=== PATIENT | male | born 2000 | race Caucasian/White ===

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

== ENCOUNTER 2022-05-16 19:18 | Inpatient (IN) ==
[2022-05-16 20:10] LABS: Appearance Urine Clear (Clear); Bilirubin Urine Negative (Negative); Blood Urine Negative (Negative); Color Urine Yellow; Glucose Urine UA Negative (Negative); Ketones Urine Trace (Negative); Leukocyte Esterase Urine Negative (Negative); Nitrite Urine Negative (Negative); Protein Urine Negative (Negative); Specific Gravity Urine 1.027 (1.000-1.030); Urobilinogen Urine Positive (Negative)
[2022-05-16] MEDS ORDERED: LORazepam 1 MG TAB PO STA (20:20)
--- NOTE | 2022-05-16 20:28 | Emergency Department Note ---
Impression & Plan OCD (obsessive compulsive disorder), Anxiety ED Provider Note NAME: ALICE TYSON AGE: 21 SEX: M : 2000 ARRIVES VIA: Walk-In INFORMANT: Patient, ED PROVIDER(S): Nader Plata DO CHIEF COMPLAINT: Mental health HPI: The patient is a 21-year-old male who presented to the emergency department for an evaluation of mental health issues. The patient states that he has been having ongoing worsening symptoms for the last few weeks. He has a history of severe OCD. He states that recently he has been not able to do his daily activities or meet his goals. He denies having any suicidal homicidal ideation. He presented with his father who was very concerned about his presentation this evening. The patient has had no recent trauma. He denies having any fever or cough. The patient was evaluated by his therapist. They have been trying to manage his medications but he does not feel that they are helping his symptoms. The patient call crisis this evening. He presented to the emergency department for possible inpatient treatment ROS: See above HPI for pertinent positives & negatives. A total of 10 systems reviewed and were otherwise negative. PAST MEDICAL HISTORY: See Below PAST SURGICAL HISTORY: See Below FAMILY HISTORY: See Below SOCIAL HISTORY: See Below HOME MEDICATIONS: See Below ALLERGIES: See Below VITALS: See Below PHYSICAL EXAMINATION: GENERAL: The patient is awake and alert. The patient is resting but he appears somewhat guarded. EYES: The conjunctivae are clear. The pupils are round and reactive. EARS, NOSE, MOUTH AND THROAT: The nose is without any evidence of any deformity. NECK: The neck is nontender and supple. RESPIRATORY: Normal respiratory effort is noted there is no evidence of wheezing rhonchi or rales CARDIOVASCULAR: Regular rate and rhythm noted there no murmurs rubs or gallops normal S1 normal S2. GASTROINTESTINAL: The abdomen is soft. Abdomen is nontender. MUSCULOSKELETAL/EXTREMITIES: There is no evidence of gross deformity full range of motion is noted in the hips and shoulders. SKIN: There is no obvious evidence of any rash. There are no petechiae, pallor or cyanosis noted. NEUROLOGIC: Patient is awake alert and oriented x3 strength is symmetric patellar reflexes are 2+ bilaterally. Gait was steady. PSYCH: The patient makes good eye contact mostly evaluation. He is currently denying any suicidal homicidal ideation. MEDICAL DECISION MAKING: The patient is a 21-year-old male who presented to the emergency department for an evaluation of mental health issues. The patient was medically cleared in the emergency department. The patient was treated with medication for anxiety. Once the patient was medically cleared he was evaluated by the mental health case fitter. The patient was requesting voluntary inpatient treatment. He was evaluated by 3 S. and was felt to be a good candidate for inpatient management. 201 was signed by myself. Triage Nursing notes reviewed. Prior medical records reviewed Vital Signs: reviewed and remarkable for no significant abnormalities Differential diagnosis: Mood disorder, infection, hypoglycemia, electrolyte abnormalities, cardiac sources, intracerebral event, toxicologic, trauma, neurologic, as well as other pathologies. ER treatment provided: See below Diagnostics interpreted by me: ECG: none Laboratory studies: As stated above and show below. Imaging studies: See below Consultation(s): none Past Med/Surg History Medical History [place] use Obesity Surgical History No pertinent past surgical history Family History Mother Diabetes Denies family history of Ovarian cancer Prostate cancer Myocardial infarction Breast cancer Colorectal cancer Hypertension Social History Smoking Status: Never smoker Second Hand Exposure: No; Hx Alcohol Use: No Hx Substance Use: No Preferred Language: Romanian Communication Ability: Effective Hearing Ability: Normal Document Imaging Manager Required: No marital status: Single Current Living Situation: Family Current Living Situation Comment: mother and father current occupational status: unemployed How many Children do You have: 0 Feels Safe at Home: Yes Childhood Exposure to Second-Hand Smoke: No caffeine: No Dental Care, Regularly: Yes Physical Activity Frequency: Daily Physical Activity Frequency Comment: working out Seatbelt Use: always Sunscreen Use: Yes Allergies Allergies Allergy/AdvReac Type Severity Reaction Status Date / Time No Known Allergies AdvReac Unknown Verified 05/16/22 21:24 Home Meds Home Medications Medication Instructions Recorded Confirmed lurasidone 20 mg tablet (Latuda) 40 mg PO HS 04/29/22 05/16/22 buspirone 10 mg tablet 0 mg PO BID 05/16/22 05/16/22 lamotrigine 100 mg tablet 0 mg PO BID 05/16/22 05/16/22 (Lamictal) Previous Rx's Medication Instructions Recorded duloxetine 30 mg capsule,delayed 30 mg PO BID #60 caps 05/16/22 release (Cymbalta) Results & Data (ED) Vital Signs Vital Signs - 24 hr 05/16/22 19:39 Temperature 36.7 C Temperature Source Temporal Artery Scan Pulse Rate 65 Respiratory Rate 16 Respiratory Effort / Characteristics Non-Labored Respiratory Depth Normal Respiratory Pattern Regular Blood Pressure 122/72 Blood Pressure Mean 88 Blood Pressure Position Sitting Pulse Oximetry 95 Oxygen Delivery Method Room Air Sepsis Recent Fever Within 48 Hours No Sepsis New/Unexplained Change in Mental Status N/A Sepsis Action Taken by Nursing No Action Required Home Medications Current Medication List: was personally reviewed by me Laboratory Data Attestation: I reviewed the patient's lab results. Result diagrams: 05/16/22 20:02 05/16/22 20:02 Lab Results 05/16/22 05/16/22 05/16/22 Range/Units 19:45 19:45 20:02 WBC 7.23 (4.8-10.8) K/ul RBC 5.55 (4.63-6.08) M/uL Hgb 16.0 (14.0-18.0) g/dl Hct 46.8 (40.1-51.0) % MCV 84.3 (80.0-100.0) fL MCH 28.8 (25.0-34.0) pg MCHC 34.2 (32.0-36.0) g/dL RDW Std Deviation 40.6 (36.4-46.3) fL RDW Coeff of Juan Alberto 13.2 (11.5-14.5) % Plt Count 299 (130-400) K/uL MPV 9.8 (9.4-12.4) fL Immature Gran % (Auto) 0.3 % Neut % (Auto) 60.6 % Lymph % (Auto) 34.4 % [place] % (Auto) 4.4 % Eos % (Auto) 0.0 % Baso % (Auto) 0.3 % Neut # (Auto) 4.38 (1.4-6.5) K/uL Lymph # (Auto) 2.49 (1.2-3.4) K/uL [place] # (Auto) 0.32 (0.24-0.82) K/uL Eos # (Auto) 0.00 (0-0.50) K/uL Baso # (Auto) 0.02 (0-0.2) K/uL Immature Gran # (Auto) 0.02 (0.00-0.02) K/uL Sodium (136-145) mmol/L Potassium (3.5-5.1) mmol/L Chloride (98-107) mmol/L Carbon Dioxide (21-32) mmol/L Anion Gap (3-11) BUN (6-23) mg/dl Creatinine (0.6-1.4) mg/dl Est Cr Clr Drug Dosing ml/min Est GFR ( Amer) ml/min Est GFR (Non-Af Amer) ml/min BUN/Creatinine Ratio (10-20) Glucose (70-99(Fasting)) mg/dl Calcium (8.5-10.1) mg/dl Total Bilirubin (0.2-1.0) mg/dl AST (13-39) U/L ALT (7-52) U/L Alkaline Phosphatase (34-104) U/L Total Protein (6.0-8.3) gm/dl Albumin (3.4-5.0) gm/dl Globulin (2.5-4.0) gm/dl Albumin/Globulin Ratio (0.9-2) TSH (0.300-4.500) uIu/ml Urine Color Yellow Urine Appearance Clear (Clear) Urine pH 7.0 (4.5-7.5) Ur Specific [place] 1.027 (1.000-1.030) Urine Protein Negative (Negative) Urine Glucose (UA) Negative (Negative) Urine Ketones Trace H (Negative) Urine Blood Negative (Negative) Urine Nitrite Negative (Negative) Urine Bilirubin Negative (Negative) Urine Urobilinogen Positive H (Negative) Ur Leukocyte Esterase Negative (Negative) Salicylates (3.0-30) mg/dl Urine Opiates Screen Neg (Neg) Ur Methadone, Qual Neg (Neg) Acetaminophen (10-30) ug/ml Urine Barbiturates Neg (Neg) Ur Phencyclidine (PCP) Neg (Neg) U Amphetamin/Meth Scrn Neg (Neg) MDMA (Ecstasy) Screen Neg (Neg) U Benzodiazepines Scrn Neg (Neg) Ur Cocaine Metabolite Neg (Neg) U Marijuana (THC) Screen Neg (Neg) Ethyl Alcohol mg/dL (<10.0) mg/dl SARS-CoV-2, RNA, NAAT (NEGATIVE) 05/16/22 05/16/22 05/16/22 Range/Units 20:02 20:02 20:02 WBC (4.8-10.8) K/ul RBC (4.63-6.08) M/uL Hgb (14.0-18.0) g/dl Hct (40.1-51.0) % MCV (80.0-100.0) fL MCH (25.0-34.0) pg MCHC (32.0-36.0) g/dL RDW Std Deviation (36.4-46.3) fL RDW Coeff of Juan Alberto (11.5-14.5) % Plt Count (130-400) K/uL MPV (9.4-12.4) fL Immature Gran % (Auto) % Neut % (Auto) % Lymph % (Auto) % [place] % (Auto) % Eos % (Auto) % Baso % (Auto) % Neut # (Auto) (1.4-6.5) K/uL Lymph # (Auto) (1.2-3.4) K/uL [place] # (Auto) (0.24-0.82) K/uL Eos # (Auto) (0-0.50) K/uL Baso # (Auto) (0-0.2) K/uL Immature Gran # (Auto) (0.00-0.02) K/uL Sodium 139 (136-145) mmol/L Potassium 4.2 (3.5-5.1) mmol/L Chloride 104 (98-107) mmol/L Carbon Dioxide 27 (21-32) mmol/L Anion Gap 8 (3-11) BUN 21 (6-23) mg/dl Creatinine 1.12 (0.6-1.4) mg/dl Est Cr Clr Drug Dosing 118.9 ml/min Est GFR ( Amer) 109.0 ml/min Est GFR (Non-Af Amer) 94.1 ml/min BUN/Creatinine Ratio 18.8 (10-20) Glucose 92 (70-99(Fasting)) mg/dl Calcium 9.4 (8.5-10.1) mg/dl Total Bilirubin 0.6 (0.2-1.0) mg/dl AST 138 H (13-39) U/L ALT 65 H (7-52) U/L Alkaline Phosphatase 95 (34-104) U/L Total Protein 7.4 (6.0-8.3) gm/dl Albumin 4.9 (3.4-5.0) gm/dl Globulin 2.5 (2.5-4.0) gm/dl Albumin/Globulin Ratio 2.0 (0.9-2) TSH 0.694 (0.300-4.500) uIu/ml Urine Color Urine Appearance (Clear) Urine pH (4.5-7.5) Ur Specific [place] (1.000-1.030) Urine Protein (Negative) Urine Glucose (UA) (Negative) Urine Ketones (Negative) Urine Blood (Negative) Urine Nitrite (Negative) Urine Bilirubin (Negative) Urine Urobilinogen (Negative) Ur Leukocyte Esterase (Negative) Salicylates < 3.0 L (3.0-30) mg/dl Urine Opiates Screen (Neg) Ur Methadone, Qual (Neg) Acetaminophen < 3 L (10-30) ug/ml Urine Barbiturates (Neg) Ur Phencyclidine (PCP) (Neg) U Amphetamin/Meth Scrn (Neg) MDMA (Ecstasy) Screen (Neg) U Benzodiazepines Scrn (Neg) Ur Cocaine Metabolite (Neg) U Marijuana (THC) Screen (Neg) Ethyl Alcohol mg/dL (<10.0) mg/dl SARS-CoV-2, RNA, NAAT (NEGATIVE) 05/16/22 05/16/22 Range/Units 20:02 20:40 WBC (4.8-10.8) K/ul RBC (4.63-6.08) M/uL Hgb (14.0-18.0) g/dl Hct (40.1-51.0) % MCV (80.0-100.0) fL MCH (25.0-34.0) pg MCHC (32.0-36.0) g/dL RDW Std Deviation (36.4-46.3) fL RDW Coeff of Juan Alberto (11.5-14.5) % Plt Count (130-400) K/uL MPV (9.4-12.4) fL Immature Gran % (Auto) % Neut % (Auto) % Lymph % (Auto) % [place] % (Auto) % Eos % (Auto) % Baso % (Auto) % Neut # (Auto) (1.4-6.5) K/uL Lymph # (Auto) (1.2-3.4) K/uL [place] # (Auto) (0.24-0.82) K/uL Eos # (Auto) (0-0.50) K/uL Baso # (Auto) (0-0.2) K/uL Immature Gran # (Auto) (0.00-0.02) K/uL Sodium (136-145) mmol/L Potassium (3.5-5.1) mmol/L Chloride (98-107) mmol/L Carbon Dioxide (21-32) mmol/L Anion Gap (3-11) BUN (6-23) mg/dl Creatinine (0.6-1.4) mg/dl Est Cr Clr Drug Dosing ml/min Est GFR ( Amer) ml/min Est GFR (Non-Af Amer) ml/min BUN/Creatinine Ratio (10-20) Glucose (70-99(Fasting)) mg/dl Calcium (8.5-10.1) mg/dl Total Bilirubin (0.2-1.0) mg/dl AST (13-39) U/L ALT (7-52) U/L Alkaline Phosphatase (34-104) U/L Total Protein (6.0-8.3) gm/dl Albumin (3.4-5.0) gm/dl Globulin (2.5-4.0) gm/dl Albumin/Globulin Ratio (0.9-2) TSH (0.300-4.500) uIu/ml Urine Color Urine Appearance (Clear) Urine pH (4.5-7.5) Ur Specific [place] (1.000-1.030) Urine Protein (Negative) Urine Glucose (UA) (Negative) Urine Ketones (Negative) Urine Blood (Negative) Urine Nitrite (Negative) Urine Bilirubin (Negative) Urine Urobilinogen (Negative) Ur Leukocyte Esterase (Negative) Salicylates (3.0-30) mg/dl Urine Opiates Screen (Neg) Ur Methadone, Qual (Neg) Acetaminophen (10-30) ug/ml Urine Barbiturates (Neg) Ur Phencyclidine (PCP) (Neg) U Amphetamin/Meth Scrn (Neg) MDMA (Ecstasy) Screen (Neg) U Benzodiazepines Scrn (Neg) Ur Cocaine Metabolite (Neg) U Marijuana (THC) Screen (Neg) Ethyl Alcohol mg/dL < 10.0 (<10.0) mg/dl SARS-CoV-2, RNA, NAAT NEGATIVE (NEGATIVE) Administered Medications Buspirone HCl (Buspirone 5 Mg Tab) 20 mg PO HS LEAH Stop: 06/15/22 23:03 Last Admin: 05/16/22 23:34 Dose: 20 mg Documented By: LED Lurasidone HCl (Lurasidone Hcl 40 Mg Tab) 40 mg PO HS LEAH Stop: 06/15/22 23:04 Last Admin: 05/16/22 23:34 Dose: 40 mg Documented By: MANDY Pramipexole Dihydrochloride (Pramipexole Dihydrochlo 0.5 Mg Tab) 1 mg PO HS LEAH Stop: 06/15/22 23:04 Last Admin: 05/16/22 23:34 Dose: 1 mg Documented By: MANDY Discontinued Medications Lorazepam (Lorazepam 1 Mg Tab) 1 mg PO NOW STA Stop: 05/16/22 20:21 Last Admin: 05/16/22 20:40 Dose: 1 mg Documented By: EZEQUIEL Discharge Plan Visit Data Chief Complaint: Mental Health Evaluation Stated Complaint: MENTAL HEALTH EVALUATION ED Provider: Nader Plata Discharge Problem: OCD (obsessive compulsive disorder), Anxiety Patient Disposition: Admitted As Inpatient Discharge Instructions Interventions: ED Discharge Assessment Last Done: 05/16/22 22:42 : OCD (obsessive compulsive disorder) Qualifiers: Obsessive-compulsive disorder type: unspecified Qualified Code(s): F42.9 - Obsessive-compulsive disorder, unspecified
[2022-05-16 20:30] LABS: Basophils # (auto) 0.02 K/uL (0-0.2); Basophils % (auto) 0.3 %; Hematocrit (blood only) 46.8 % (40.1-51.0); Immature Granulocytes # (auto) 0.02 K/uL (0.00-0.02); Immature Granulocytes % (auto) 0.3 %; Lymphocytes # (auto) 2.49 K/uL (1.2-3.4); Lymphocytes % (auto) 34.4 %; Mean Corpuscular Hemoglobin 28.8 pg (25.0-34.0); Mean Corpuscular Hgb Conc 34.2 g/dL (32.0-36.0); Mean Corpuscular Volume 84.3 fL (80.0-100.0); Mean Platelet Volume 9.8 fL (9.4-12.4); Monocytes # (auto) 0.32 K/uL (0.24-0.82); Monocytes % (auto) 4.4 %; Neutrophils # (auto) 4.38 K/uL (1.4-6.5); Neutrophils % (auto) 60.6 %; Platelet Count 299 K/uL (130-400); RDW Coefficient of Variation 13.2 % (11.5-14.5); RDW Standard Deviation 40.6 fL (36.4-46.3); Red Blood Count 5.55 M/uL (4.63-6.08); White Blood Count 7.23 K/ul (4.8-10.8)
[2022-05-16 20:51] LABS: Amphetamines+Metham, Urine Neg (Neg); Barbiturates, Urine Neg (Neg); Benzodiazepine, Urine Neg (Neg); Cocaine, Urine Neg (Neg); MDMA (Ecstacy), Urine Neg (Neg); Methadone, Urine Neg (Neg); Opiate, Urine Neg (Neg); Phencyclidine, Urine Neg (Neg)
[2022-05-16 20:53] LABS: Acetaminophen < 3 ug/ml (10-30); Salicylate < 3.0 mg/dl (3.0-30)
[2022-05-16 20:55] LABS: Albumin Level 4.9 gm/dl (3.4-5.0); BUN Creatinine Ratio 18.8 (10-20); Bilirubin,Total 0.6 mg/dl (0.2-1.0); Calcium 9.4 mg/dl (8.5-10.1); Creatinine Clr Calc Pharmacy 118.9 ml/min; Est GFR (Non-African American) 94.1 ml/min; Globulin 2.5 gm/dl (2.5-4.0); Potassium 4.2 mmol/L (3.5-5.1); Total Protein 7.4 gm/dl (6.0-8.3)
[2022-05-16] MEDS ORDERED: MAGNESIUM HYDROXIDE SUSP 30 ML UDC PO PRN (22:29)
[2022-05-16] MEDS ORDERED: SODIUM CHLORIDE 0.65% NA SOLN 45 ML (OCEAN) PRN (22:29)
[2022-05-16] MEDS ORDERED: ACETAMINOPHEN 325 MG TAB PO PRN (22:29)
[2022-05-16] MEDS ORDERED: hydrOXYzine HCl 25 MG TAB PO PRN ×2 (22:29)
[2022-05-16] MEDS ORDERED: BISMUTH SUBSALICYLATE LIQD 236 ML PO PRN (22:29)
[2022-05-16] MEDS ORDERED: ALUMINUM/MAGNESIUM SUSP 30 ML UDC PO PRN (22:29)
[2022-05-16] MEDS ORDERED: busPIRone 5 MG TAB PO SCH (23:04)
[2022-05-16] MEDS ORDERED: LURASIDONE HCL 40 MG TAB PO SCH (23:05)
[2022-05-16] MEDS ORDERED: PRAMIPEXOLE DIHYDROCHLO 0.5 MG TAB PO SCH (23:05)
[2022-05-17] MEDS ORDERED: ALUMINUM/MAGNESIUM SUSP 30 ML UDC PO PRN (02:05)
[2022-05-17] MEDS ORDERED: SODIUM CHLORIDE 0.65% NA SOLN 45 ML (OCEAN) PRN (02:05)
[2022-05-17] MEDS ORDERED: hydrOXYzine HCl 25 MG TAB PO PRN ×2 (02:05)
[2022-05-17] MEDS ORDERED: BISMUTH SUBSALICYLATE LIQD 236 ML PO PRN (02:05)
[2022-05-17] MEDS ORDERED: ACETAMINOPHEN 325 MG TAB PO PRN (02:05)
[2022-05-17] MEDS ORDERED: MAGNESIUM HYDROXIDE SUSP 30 ML UDC PO PRN (02:05)
[2022-05-17] MEDS: DULoxetine HCL 30 MG CAP PO SCH ×2 (10:34→22:01)
[2022-05-17] MEDS: busPIRone 5 MG TAB PO SCH ×2 (10:34→22:06)
--- NOTE | 2022-05-17 14:30 | History & Physical ---
Date of Service May 17, 2022 Impression / Recommendations Impression The patient is a 21 year old with a history of OCD, childhood trauma, MDD, PTSD and possible BPAD who was admitted for failure of self-care due to severe depression and OCD. Diagnostically unclear at this point, seems that OCD and depression have been contributing to significant neurovegetative symptoms resulting in inability to function but unclear if recent elevated mood episode contributing to irritability. He has also lost a significant amount of weight in the last year but denies any eating disorder symptoms, if anything orthorexia so continue to evaluate this and monitor intake while he is here. The patient is deemed unstable and requires psychiatric hospitalization for diagnostic clarification, safety and stabilization, medication management and development of further coping skills as he felt unable to function in the outpatient setting. Discussed medication treatment options. Discussed risks, benefits and alternatives. Patient would like to continue with most of his current medications for now but agreed to stop mirapex given potential for long-term worsening of restless legs and to try gabapentin instead as this can also help with anxiety, agreed to switch latuda to dinner time to allow for better absorption as he does not take it with a snack at bedtime. Reviewed side effects including but not limited to: GI, SY, sexual side effects, HTN, diaphoresis with Cymbalta, movement (TD, NMS), cardiac (QTc prolongation), and metabolic (stroke, insulin resistance) and necessity for fasting lipid and glucose labwork and AIMS done with score of 0 for latuda, sedation and dizziness with gabapentin, dizziness/SY with buspar, and potential for Johnson-Zelalem with lamictal and need for adherence which he confirms he has been taking this consistently without any missed doses. (1) Unspecified mood [affective] disorder: (2) OCD (obsessive compulsive disorder): Obsessive-compulsive disorder type: unspecified Qualified Code(s): F42.9 - Obsessive-compulsive disorder, unspecified (3) Fibromyalgia: (4) Anxiety: Plan 05/17/22: The patient was admitted to the [facility] on q15 min checks (behavioral with suicide precautions) for safety. The patient will participate in group, recreational, and milieu therapies and will be offered additional individual and family sessions as clinically appropriate. -Continue with Buspar, Lamictal, Cymbalta -Stop Mirapex and start gabapentin 300mg qhs -Change latuda to with dinner Inventory Assets Strengths: resilient, good self-advocate, supportive family, outpatient services Needs: safety and stabilization, medication adjustment, additional coping skills, increased outpatient services Suicide Risk Level Suicide Risk Level: Moderate (q15 min suicide checks) Suicide Risk Level Comments: Moderate due to severe anxiety and depression but feels safe in the hospital, able to safety contract and agrees to let nursing/staff know should he develop active SI, plan, intent or feel unable to remain safe. Risk Factors Assessment Male: Yes : Yes Do You Have Access To A Gun?: No (dad has guns which are locked and he doesn't have access) Health Problems: Yes Mental Health Diagnoses: Yes Substance Use Disorders: No Previous Attempt: No Family History of Suicide: Yes Previous Psychiatric Hospitalization: Yes Hopelessness: Yes Protective Factors Assessment Employed: No (seeking emoployment) Stable Relationships: Yes Supportive Family: Yes Good Rapport with Provider: Yes Psychiatric History Identifying Data ALICE TYSON is a 21-year-old M who currently lives in [facility] with his parents, has a history of BPAD, OCD, PTSD and MDD, and was admitted on 05/16/22 22:30 on a 201 voluntary commitment for severe depression with inability to function. Chief Complaint "I feel like I'm about to have a mental breakdown". History of Present Illness DJ presents for psychiatric admission for worsening depression in the context of leaving his job but also notes he cannot identify any particular significant stressors so he suspects it's an issue with his medications no longer working. In the last month he found that "things have really gone downhill". He notes that following his boss at his prior job "snapping at me, that's when things really started to go downhill and getting really bad again". He states he's been "really angry and irritable because of my OCD". He notes he is very goal- oriented and was accomplishing a lot including significant weight loss, working out regularly, pursuing dream of being a musician "and then this just kind of happened". He describes symptoms of severe anxiety, "almost on the verge of a mental breakdown" as well as "overthinking everything and thinking no stop to the point that I can't function or do anything". Notes he cannot do any of his hobbies and "talks in circles" which strains his relationship with his parents and now he notices increased irritability and depression with helplessness and hopelessness. He describes an increase in verbal aggression, states he's been slamming stuff and trying to break stuff due to irritability which he notes he not usual for him. He endorses depressive symptoms including anhedonia, tearfulness, hopelessness, helplessness, decreased energy, decreased motivation, decreased concentration, increased sleep last few days ~>10 hours per night, stable appetite. He's also had periods of passive SI. He endorses anxiety symptoms including excessive worry, restlessness, fatigue, irritability, decreased concentration. He is currently prescribed psychiatric medications of: Buspar, Cymbalta (dose increased yesterday to further target OCD symptoms, also helps with his fibromyalgia), Lamictal, Latuda and Mirapex for restless legs. Psychiatric ROS notable for history of sdecreased sleep a few months ago with some increased energy and exercising at night-no clear description for past syl but he feels he has experienced syl before and that it was diagnosed in childhood, hx childhood psychosis in context of severe bullying, hx PTSD, no hx of eating disorder, no hx self-harm. Past Psychiatric History Current Psychiatric Diagnosis: MDD, Bipolar, OCD Outpatient Services: [facility], has a therapist at [facility], has a case supervisor through the [facility]. Previous Psych Admissions: January 2022 [facility], and 3 prior admissions during childhood (age [age] at [facility], age [age] at [facility] and then [facility] a few months later). Do You Have Access To A Gun?: No (dad has guns which are locked and he doesn't have access) History of Previous Suicide Attempt: No Past Medication Trials: Celexa, Vici-level was too high. Clomipramine which helped OCD but can't go back on due to being on Cymbalta Past Head Trauma/Neuro History History of Concussion/Seizure: No Allergies Allergy/AdvReac Type Severity Reaction Status Date / Time No Known Allergies AdvReac Unknown Verified 05/16/22 21:24 Home Medications Medication Instructions Recorded Confirmed Type lurasidone 20 mg tablet (Latuda) 40 mg PO HS 04/29/22 05/17/22 History buspirone 10 mg tablet 10 mg PO DAILY 05/16/22 05/17/22 History duloxetine 30 mg capsule,delayed 30 mg PO BID #60 caps 05/16/22 05/16/22 Rx release (Cymbalta) lamotrigine 100 mg tablet 0 mg PO BID 05/16/22 05/16/22 History (Lamictal) buspirone 30 mg tablet 20 mg PO HS 05/17/22 05/17/22 History pramipexole 1 mg tablet (Mirapex) 1 mg PO HS 05/17/22 05/17/22 History Family History Family History of: Depression, Anxiety, Psychosis/ThoughtDisorder (mom-she has BPD), Suicide Attempts, Bipolar (mom, great grandfather on maternal side ) and Suicide Completion (great grandfather) Family Mental Health History Comment: great grandfather completed suicide. mother with attempts with psychosis, Bipolar, BPD and MIRIAN dx. Alcohol History Hx of Alcohol Use Over the Past 12 Months: No AUDIT Total Score: 0 Smoking Use Have You Smoked or Used Tobacco Products in the Last 30 Days: No Smoking Status: Never smoker Substance History Hx of Prescription Med Misuse Over the Past 12 Months: No Hx of Over the Counter Med Misuse Over the Past 12 Months: No Hx of Inhalent Misuse Over the Past 12 Months: No Hx of Organic Substance Use Over the Past 12 Months: No Hx of Illegal Substances/Street Drug Use Over Past 12 Months: No Problems as a Result of Past Substance Use: None Identified Personal History Living Arrangements: Home Childhood: Lives with his mom and step-dad. His step-dad has been in his life since he was young and he's very close with him. No siblings. Grew up in [place]. Lived with his grandparents when he was young at age 3-4. Highest Grade Completed: High School Graduate Employment Status: Unemployed (recently left prior job as hours were cut and no way to advance; has new job offer to start soon ) Marital Status: Single Number Of Children: n/a Beliefs That Will Affect Care: None Current Legal Problems: No Hx Legal Problems: No Hx Traumatic Life Events: Yes (hx emotional trauma due to seeing his mother struggle with mental health) Patient History Medical History (Updated 05/17/22 @ 16:31 by Ana Maria Peterson MD) Fibromyalgia Vici use Obesity Surgical History No pertinent past surgical history Family History Mother Diabetes Denies family history of Ovarian cancer Prostate cancer Myocardial infarction Breast cancer Colorectal cancer Hypertension Social History Smoking Status: Never smoker Second Hand Exposure: No; Hx Alcohol Use: No Hx Substance Use: No Preferred Language: P[place]in[place] Communication Ability: Effective Hearing Ability: Normal Cashier And Salesperson Required: No Beliefs That Will Affect Care: None marital status: Single Current Living Situation: Family Current Living Situation Comment: mother and father current occupational status: unemployed How many Children do You have: 0 Feels Safe at Home: Yes Childhood Exposure to Second-Hand Smoke: No caffeine: No Dental Care, Regularly: Yes Physical Activity Frequency: Daily Physical Activity Frequency Comment: working out Seatbelt Use: always Sunscreen Use: Yes Assistive Devices: None Review of Systems Review of Systems: All systems reviewed & are unremarkable except as noted in HPI & below (recently broke right arm, healing now and no pain but some redness) Physical Exam Psychiatric: Orientation: alert and oriented x 3 Apperance: appropriately dressed and appropriately groomed Eye Contact: good eye contact Motor Behavior: no abnormal motor movements Speech: + abnormal rate/rhythm/volume of speech (slightly rapid) Affect: + depressed affect and + anxious affect Mood: + depressed mood, + anxious mood and + irritable mood Thought Process: + circumstantial thought process Thought Content: + obsessions, reality based without delusions and + hopelessness Suicidal Thoughts: denies suicidal thoughts Homicidal Thoughts: denies homicidal thoughts Hallucinations: no auditory hallucinations and no visual hallucinations Cognition: recent memory grossly intact, remote memory grossly intact, attention grossly intact and language grossly intact Estimated Intelligence: consistent with education level Insight: + limited insight Judgement: + fair judgement Vital Signs (Past 24 Hours): Last Vital Signs Temp 36.9 C 05/17/22 06:00 Pulse 66 05/17/22 06:49 Resp 16 05/17/22 06:00 BP 121/75 05/17/22 06:49 Pulse Ox 97 05/17/22 06:00 O2 Del Method 05/17/22 06:00 Exam Statement: A physical exam was performed in the ED by Dr. Plata for the purposes of medical clearance. I accept that physical as correct and adequate for the purposes of the inpatient physical exam. Results & Data ([facility]) Laboratory Results Laboratory Results - last 24 hr 05/16/22 05/16/22 05/16/22 19:45 19:45 20:02 WBC 7.23 RBC 5.55 Hgb 16.0 Hct 46.8 MCV 84.3 MCH 28.8 MCHC 34.2 RDW Std Deviation 40.6 RDW Coeff of Juan Alberto 13.2 Plt Count 299 MPV 9.8 Immature Gran % (Auto) 0.3 Neut % (Auto) 60.6 Lymph % (Auto) 34.4 [place] % (Auto) 4.4 Eos % (Auto) 0.0 Baso % (Auto) 0.3 Neut # (Auto) 4.38 Lymph # (Auto) 2.49 [place] # (Auto) 0.32 Eos # (Auto) 0.00 Baso # (Auto) 0.02 Immature Gran # (Auto) 0.02 Sodium Potassium Chloride Carbon Dioxide Anion Gap BUN Creatinine Est Cr Clr Drug Dosing Est GFR ( Amer) Est GFR (Non-Af Amer) BUN/Creatinine Ratio Glucose Calcium Total Bilirubin AST ALT Alkaline Phosphatase Total Protein Albumin Globulin Albumin/Globulin Ratio TSH Urine Color Yellow Urine Appearance Clear Urine pH 7.0 Ur Specific [place] 1.027 Urine Protein Negative Urine Glucose (UA) Negative Urine Ketones Trace H Urine Blood Negative Urine Nitrite Negative Urine Bilirubin Negative Urine Urobilinogen Positive H Ur Leukocyte Esterase Negative Salicylates Urine Opiates Screen Neg Ur Methadone, Qual Neg Acetaminophen Urine Barbiturates Neg Ur Phencyclidine (PCP) Neg U Amphetamin/Meth Scrn Neg MDMA (Ecstasy) Screen Neg U Benzodiazepines Scrn Neg Ur Cocaine Metabolite Neg U Marijuana (THC) Screen Neg Ethyl Alcohol mg/dL SARS-CoV-2, RNA, NAAT 05/16/22 05/16/22 05/16/22 20:02 20:02 20:02 WBC RBC Hgb Hct MCV MCH MCHC RDW Std Deviation RDW Coeff of Juan Alberto Plt Count MPV Immature Gran % (Auto) Neut % (Auto) Lymph % (Auto) [place] % (Auto) Eos % (Auto) Baso % (Auto) Neut # (Auto) Lymph # (Auto) [place] # (Auto) Eos # (Auto) Baso # (Auto) Immature Gran # (Auto) Sodium 139 Potassium 4.2 Chloride 104 Carbon Dioxide 27 Anion Gap 8 BUN 21 Creatinine 1.12 Est Cr Clr Drug Dosing 118.9 Est GFR ( Amer) 109.0 Est GFR (Non-Af Amer) 94.1 BUN/Creatinine Ratio 18.8 Glucose 92 Calcium 9.4 Total Bilirubin 0.6 AST 138 H ALT 65 H Alkaline Phosphatase 95 Total Protein 7.4 Albumin 4.9 Globulin 2.5 Albumin/Globulin Ratio 2.0 TSH 0.694 Urine Color Urine Appearance Urine pH Ur Specific [place] Urine Protein Urine Glucose (UA) Urine Ketones Urine Blood Urine Nitrite Urine Bilirubin Urine Urobilinogen Ur Leukocyte Esterase Salicylates < 3.0 L Urine Opiates Screen Ur Methadone, Qual Acetaminophen < 3 L Urine Barbiturates Ur Phencyclidine (PCP) U Amphetamin/Meth Scrn MDMA (Ecstasy) Screen U Benzodiazepines Scrn Ur Cocaine Metabolite U Marijuana (THC) Screen Ethyl Alcohol mg/dL SARS-CoV-2, RNA, NAAT 05/16/22 05/16/22 20:02 20:40 WBC RBC Hgb Hct MCV MCH MCHC RDW Std Deviation RDW Coeff of Juan Alberto Plt Count MPV Immature Gran % (Auto) Neut % (Auto) Lymph % (Auto) [place] % (Auto) Eos % (Auto) Baso % (Auto) Neut # (Auto) Lymph # (Auto) [place] # (Auto) Eos # (Auto) Baso # (Auto) Immature Gran # (Auto) Sodium Potassium Chloride Carbon Dioxide Anion Gap BUN Creatinine Est Cr Clr Drug Dosing Est GFR ( Amer) Est GFR (Non-Af Amer) BUN/Creatinine Ratio Glucose Calcium Total Bilirubin AST ALT Alkaline Phosphatase Total Protein Albumin Globulin Albumin/Globulin Ratio TSH Urine Color Urine Appearance Urine pH Ur Specific [place] Urine Protein Urine Glucose (UA) Urine Ketones Urine Blood Urine Nitrite Urine Bilirubin Urine Urobilinogen Ur Leukocyte Esterase Salicylates Urine Opiates Screen Ur Methadone, Qual Acetaminophen Urine Barbiturates Ur Phencyclidine (PCP) U Amphetamin/Meth Scrn MDMA (Ecstasy) Screen U Benzodiazepines Scrn Ur Cocaine Metabolite U Marijuana (THC) Screen Ethyl Alcohol mg/dL < 10.0 SARS-CoV-2, RNA, NAAT NEGATIVE Current Inpatient Medications Current Inpatient Medications: Current Inpatient Medications Acetaminophen (Acetaminophen 325 Mg Tab) 650 mg PO Q4H PRN PRN Reason: Headache or Minor Fever Stop: 06/15/22 22:28 Al Hydrox/Mg Hydrox/Simethicone (Aluminum/Magnesium Susp 30 Ml Udc) 30 ml PO Q4H PRN PRN Reason: GI Upset Stop: 06/15/22 22:28 Bismuth Subsalicylate (Bismuth Subsalicylate Liqd 236 Ml) 15 ml PO PRN PRN PRN Reason: Loose Stool Stop: 06/15/22 22:28 Buspirone HCl (Buspirone 5 Mg Tab) 20 mg PO HS [facility] Stop: 06/16/22 21:59 Buspirone HCl (Buspirone 5 Mg Tab) 10 mg PO DAILY [facility] Stop: 06/16/22 08:59 Last Admin: 05/17/22 10:34 Dose: 10 mg Duloxetine HCl (Duloxetine Hcl 30 Mg Cap) 30 mg PO BID [facility] Stop: 06/16/22 08:59 Last Admin: 05/17/22 10:34 Dose: 30 mg Hydroxyzine HCl (Hydroxyzine Hcl 25 Mg Tab) 50 mg PO HSZ PRN PRN Reason: Insomnia Stop: 06/15/22 22:28 Hydroxyzine HCl (Hydroxyzine Hcl 25 Mg Tab) 25 mg PO Q4H PRN PRN Reason: Anxiety Stop: 06/15/22 22:28 Lurasidone HCl (Lurasidone Hcl 40 Mg Tab) 40 mg PO HS [facility] Stop: 06/16/22 21:59 Magnesium Hydroxide (Magnesium Hydroxide Susp 30 Ml Udc) 30 ml PO DAILY PRN PRN Reason: Constipation Stop: 06/15/22 22:28 Miscellaneous (Lamictal - Order Awaiting Action) 1 each N/A QS [facility] Stop: 06/16/22 09:29 Pramipexole Dihydrochloride (Pramipexole Dihydrochlo 0.5 Mg Tab) 1 mg PO HS [facility] Stop: 06/16/22 21:59 Sodium Chloride (Sodium Chloride 0.65% Na Soln 45 Ml ([place])) 1 - 2 sprays NA PRN PRN PRN Reason: Nasal Dryness/Congestion Stop: 06/15/22 22:28
[2022-05-17] MEDS: LURASIDONE HCL 40 MG TAB PO SCH (18:03)
[2022-05-17] MEDS ORDERED: PRAMIPEXOLE DIHYDROCHLO 0.5 MG TAB PO SCH (22:00)
[2022-05-17] MEDS ORDERED: LURASIDONE HCL 40 MG TAB PO SCH (22:00)
[2022-05-17] MEDS: lamoTRIgine 100 MG TAB PO SCH (22:02)
[2022-05-17] MEDS: GABAPENTIN 300 MG CAP PO SCH (22:04)
--- NOTE | 2022-05-18 08:24 | Psychiatric Progress Note ---
Date of Service May 18, 2022 Impression / Recommendations Impression The patient is a 21 year old with a history of OCD, childhood trauma, MDD, PTSD and possible BPAD who was admitted for failure of self-care due to severe depression and OCD. Diagnostically unclear at this point, seems that OCD and depression have been contributing to significant neurovegetative symptoms resulting in inability to function but unclear if recent elevated mood episode contributing to irritability. He has also lost a significant amount of weight in the last year but denies any eating disorder symptoms, if anything orthorexia so continue to evaluate this and monitor intake while he is here. The patient is deemed unstable and requires psychiatric hospitalization for diagnostic clarification, safety and stabilization, medication management and development of further coping skills as he felt unable to function in the outpatient setting. 05/18/22: Continues to endorse very significant depression as well as marked irritability and difficulty tolerating discussions about his medication given h opelessness sedation with the time required to see a change related to medication adjustments. Slept well as he reports ongoing severe fatigue. Tolerating his other medications without any side effects. Discussed option of consolidating Cymbalta dose but he prefers to keep it a split dosing. (1) Unspecified mood [affective] disorder: (2) OCD (obsessive compulsive disorder): (3) Fibromyalgia: (4) Anxiety: Plan 05/18/22: Continue with current medications and treatment plan. Discussed option of augmentation with Depakote which he will consider. 05/17/22: The patient was admitted to the [facility] on q15 min checks (behavioral with suicide precautions) for safety. The patient will participate in group, recreational, and milieu therapies and will be offered additional individual and family sessions as clinically appropriate. -Continue with Buspar, Lamictal, Cymbalta -Stop Mirapex and start gabapentin 300mg qhs -Change latuda to with dinner Inventory Assets Strengths: resilient, good self-advocate, supportive family, outpatient services Needs: safety and stabilization, medication adjustment, additional coping skills, increased outpatient services Suicide Risk Level Suicide Risk Level: Moderate (q15 min suicide checks) Suicide Risk Level Comments: Moderate due to severe anxiety and depression but feels safe in the hospital, able to safety contract and agrees to let nursing/staff know should he develop active SI, plan, intent or feel unable to remain safe. Risk Factors Assessment Male: Yes : Yes Do You Have Access To A Gun?: No Health Problems: Yes Mental Health Diagnoses: Yes Substance Use Disorders: No Previous Attempt: No Family History of Suicide: Yes Previous Psychiatric Hospitalization: Yes Hopelessness: Yes Protective Factors Assessment Employed: No (seeking emoployment) Stable Relationships: Yes Supportive Family: Yes Good Rapport with Provider: Yes Interval History Identifying Information ALICE TYSON is a 21-year-old M who currently lives in [facility] with his parents, has a history of BPAD, OCD, PTSD and MDD, and was admitted on 05/16/22 22:30 on a 201 voluntary commitment for severe depression with inability to function. Chief Complaint "This is the worst it has ever been I cannot be like this". Review of Systems Sleep Information Total Hours of Sleep: 8 Meal Information Percent Meal Consumed - Breakfast: 100 Percent Meal Consumed - Lunch: 100 Percent Meal Consumed - Dinner: 100 Subjective Subjective Patient was seen & assessed and interval progress reviewed with treatment team nursing and social work. DJ attended groups last night. Discussing trauma from adverse events in childhood including witnessing his mother's suicide attempts. Last night he completed symptom questionnaires including the MIRIAN-7 in which he rated himself as a 3 out of 3 for every symptom category and that the symptoms are extremely difficult with a total score of 21. He also completed the mood disorder questionnaire and answered yes to every symptom except changes in sexual interest, risk-taking behaviors or excessive spending of money he noted that all of these problems were serious problem and that he has family history of bipolar disorder and has been told in the past he has manic depressive illness or bipolar disorder. He also completed the Y-BOCS raymon-brown obsessive-compulsive disorder scale he noted on the symptom checklist inventory a history of contamination obsessions of concerns with bodily waste or secretions concerns of the feel of these as well as obsessions related to a need to know or remember, fear of saying certain things, fear of not saying just the right thing, fear of losing things, intrusive nonviolent images, bothered by certain sounds noises as well as excessive or ritualized handwashing, excessive or ritualizing shower bathing and grooming as well as other measures to prevent or remove contact with contaminants. In terms of severity of these symptoms on my box he scored himself as spending more than 8 hours/day occupied with these obsessive thoughts that they are incapacitating that the distress associated with these his process of thoughts is near constant and disabling that his resistance against the obsessions is to try and resist all the time that his degree of control over the obsessive thoughts is rarely successful that he spends more than 8 hours a day performing compulsive behaviors that due to the compulsive behaviors it is incapacitating and he is only slightly anxious if the compulsions are prevented that he always tries to resist the compulsions and that he usually is able to exercise voluntary control over these compulsions. Meeting with him today he states his mood is "honestly I think worse" stating th at he feels he has never felt "this depressed tired and on edge before". He presents with significant irritability frustration that his medication changes made 2 days ago have not already started to offer benefit. Remains very fixated on his medications as the cause of his symptoms and the need for the medication to improve things quickly. Reviewed the results of his different screening questionnaires and in further discussion about past history of syl he denied any specific symptoms of this to the degree that would be consistent with acute syl. Rather he identified periods of time with decreased sleep but not with associated risk-taking behaviors or other acutely disruptive activities. He continues to feel that his biggest challenge is depression and OCD and we discussed potential medication options for this including switching to an SSRI as SNRIs can sometimes be activating versus retrial of clomipramine versus trying a different antipsychotic. Also provided him literature on some of the case studies that have been done using N-acetylcysteine though discussed that this is not available in the hospital and would be something he could consider in the outpatient setting for OCD. Also discussed recommendation for IOP for exposure response prevention for OCD which he is open to. At this time he wants to remain on Cymbalta as he finds it very helpful for his fibromyalgia discussed the timeline of medications for helping with depression and that it takes a little while. Also reviewed option to try low-dose augmentation with Depakote given his significant irritability and that this would also provide some mood stabilization if he does in fact have more of a bipolar type II presentation with episodes of hypomania. Physical Exam Psychiatric Orientation: alert and oriented x 3 Apperance: appropriately dressed and appropriately groomed Eye Contact: good eye contact Motor Behavior: no abnormal motor movements Speech: normal rate/rhythm/volume of speech Affect: + depressed affect, + anxious affect and + irritable affect Mood: + depressed mood, + anxious mood and + irritable mood Thought Process: + circumstantial thought process Thought Content: + obsessions, reality based without delusions and + hopelessness Suicidal Thoughts: denies suicidal thoughts Homicidal Thoughts: denies homicidal thoughts Hallucinations: no auditory hallucinations and no visual hallucinations Cognition: recent memory grossly intact, remote memory grossly intact, attention grossly intact and language grossly intact Estimated Intelligence: consistent with education level Insight: + limited insight Judgement: + fair judgement Vital Signs (Past 24 Hours) Last Vital Signs Temp 36.2 C L 05/18/22 06:00 Pulse 79 05/18/22 06:37 Resp 16 05/18/22 06:00 BP 113/64 05/18/22 06:37 Pulse Ox 98 05/18/22 06:00 O2 Del Method 05/18/22 06:00 Results & Data ([facility]) Current Inpatient Medications Current Inpatient Medications: Current Inpatient Medications Acetaminophen (Acetaminophen 325 Mg Tab) 650 mg PO Q4H PRN PRN Reason: Headache or Minor Fever Stop: 06/15/22 22:28 Al Hydrox/Mg Hydrox/Simethicone (Aluminum/Magnesium Susp 30 Ml Udc) 30 ml PO Q4H PRN PRN Reason: GI Upset Stop: 06/15/22 22:28 Bismuth Subsalicylate (Bismuth Subsalicylate Liqd 236 Ml) 15 ml PO PRN PRN PRN Reason: Loose Stool Stop: 06/15/22 22:28 Buspirone HCl (Buspirone 5 Mg Tab) 20 mg PO HS [facility] Stop: 06/16/22 21:59 Last Admin: 05/17/22 22:06 Dose: 20 mg Buspirone HCl (Buspirone 5 Mg Tab) 10 mg PO DAILY [facility] Stop: 06/16/22 08:59 Last Admin: 05/17/22 10:34 Dose: 10 mg Duloxetine HCl (Duloxetine Hcl 30 Mg Cap) 30 mg PO BID [facility] Stop: 06/16/22 08:59 Last Admin: 05/17/22 22:01 Dose: 30 mg Gabapentin (Gabapentin 300 Mg Cap) 300 mg PO LEAH Stop: 06/16/22 21:59 Last Admin: 05/17/22 22:04 Dose: 300 mg Hydroxyzine HCl (Hydroxyzine Hcl 25 Mg Tab) 50 mg PO HSZ PRN PRN Reason: Insomnia Stop: 06/15/22 22:28 Hydroxyzine HCl (Hydroxyzine Hcl 25 Mg Tab) 25 mg PO Q4H PRN PRN Reason: Anxiety Stop: 06/15/22 22:28 Lamotrigine (Lamotrigine 100 Mg Tab) 150 mg PO BID [facility] Stop: 06/16/22 20:59 Last Admin: 05/17/22 22:02 Dose: 150 mg Lurasidone HCl (Lurasidone Hcl 40 Mg Tab) 40 mg PO QDD [facility] Stop: 06/16/22 17:44 Last Admin: 05/17/22 18:03 Dose: 40 mg Magnesium Hydroxide (Magnesium Hydroxide Susp 30 Ml Udc) 30 ml PO DAILY PRN PRN Reason: Constipation Stop: 06/15/22 22:28 Sodium Chloride (Sodium Chloride 0.65% Na Soln 45 Ml ([place])) 1 - 2 sprays NA PRN PRN PRN Reason: Nasal Dryness/Congestion Stop: 06/15/22 22:28 Mental Health & Subst Abuse Tx Therapist Name of Therapist: [facility] Date of Therapist Appointment: 05/18/22 Air Traffic Instructor Name of Air Traffic Instructor: SUBHASH Weiner Post Discharge Appointments Primary Care Physician Name Of Family Doctor: Dr Fairchild with [facility] Provider Appointment Comment: [id number] [facility] [id number] (1) OCD (obsessive compulsive disorder) Obsessive-compulsive disorder type: unspecified Qualified Code(s): F42.9 - Obsessive-compulsive disorder, unspecified
[2022-05-18 09:23] LABS: Chol HDL Ratio 3.8 (0-5)
[2022-05-18] MEDS: lamoTRIgine 100 MG TAB PO SCH ×2 (09:46→21:17)
[2022-05-18] MEDS: DULoxetine HCL 30 MG CAP PO SCH ×2 (09:47→21:18)
[2022-05-18] MEDS: busPIRone 5 MG TAB PO SCH ×2 (09:47→21:20)
[2022-05-18] MEDS: LURASIDONE HCL 40 MG TAB PO SCH (17:48)
[2022-05-18] MEDS: GABAPENTIN 300 MG CAP PO SCH (21:16)
[2022-05-19] MEDS: lamoTRIgine 100 MG TAB PO SCH ×2 (08:34→22:14)
[2022-05-19] MEDS: DULoxetine HCL 30 MG CAP PO SCH ×2 (08:35→22:14)
[2022-05-19] MEDS: busPIRone 5 MG TAB PO SCH ×2 (08:35→22:14)
--- NOTE | 2022-05-19 15:53 | Psychiatric Progress Note ---
Date of Service May 19, 2022 Impression / Recommendations Impression The patient is a 21 year old with a history of OCD, childhood trauma, MDD, PTSD and possible BPAD who was admitted for failure of self-care due to severe depression and OCD. Diagnostically unclear at this point, seems that OCD and depression have been contributing to significant neurovegetative symptoms resulting in inability to function but unclear if recent elevated mood episode contributing to irritability versus possible ADHD but unable to diagnosis during acute mood episode and with heightened anxiety. He has also lost a significant amount of weight in the last year but denies any eating disorder symptoms, if anything orthorexia so continue to evaluate this and monitor intake while he is here. The patient is deemed unstable and requires psychiatric hospitalization for diagnostic clarification, safety and stabilization, medication management and development of further coping skills as he felt unable to function in the outpatient setting. 05/19/22: Some lessening of depression today but still with high levels of anxiety and OCD symptoms. Less irritability today. Reviewed potential options regarding his medication including consolidating Cymbalta, he prefers the dosing as it is, versus other considerations for anxiety. He is not interested in Depakote given additional collateral seems that bipolar disorder is much less likely. Reviewed option to try guanfacine for off label use for anxiety as well as potential benefit for history of symptoms that could be consistent with ADHD including impulsivity, talkativeness, fidgeting, difficulty with concentration and staying on task and periods of hyper fixation. He consents to starting guanfacine reviewed side effects including but not limited to fatigue and low blood pressure. He feels the gabapentin is working well for his restless leg symptoms. (1) Unspecified mood [affective] disorder: (2) OCD (obsessive compulsive disorder): (3) Fibromyalgia: (4) Anxiety: Plan 05/19/22: Add guanfacine ER 1mg qd. Continue other medications and tx plan. Had family meeting. 05/18/22: Continue with current medications and treatment plan. Discussed option of augmentation with Depakote which he will consider. 05/17/22: The patient was admitted to the [facility] ([facility]) on q15 min checks (behavioral with suicide precautions) for safety. The patient will participate in group, recreational, and milieu therapies and will be offered additional individual and family sessions as clinically appropriate. -Continue with Buspar, Lamictal, Cymbalta -Stop Mirapex and start gabapentin 300mg qhs -Change latuda to with dinner as he was not taking it with food at bedtime Inventory Assets Strengths: resilient, good self-advocate, supportive family, outpatient services Needs: safety and stabilization, medication adjustment, additional coping skills, increased outpatient services Suicide Risk Level Suicide Risk Level: Moderate (q15 min suicide checks) Suicide Risk Level Comments: Moderate due to severe anxiety and depression but feels safe in the hospital, able to safety contract and agrees to let nursing/staff know should he develop active SI, plan, intent or feel unable to remain safe. Risk Factors Assessment Male: Yes : Yes Do You Have Access To A Gun?: No Health Problems: Yes Mental Health Diagnoses: Yes Substance Use Disorders: No Previous Attempt: No Family History of Suicide: Yes Previous Psychiatric Hospitalization: Yes Hopelessness: Yes Protective Factors Assessment Employed: No (seeking emoployment) Stable Relationships: Yes Supportive Family: Yes Good Rapport with Provider: Yes Interval History Identifying Information ALICE TYSON is a 21-year-old M who currently lives in [facility] with his parents, has a history of BPAD, OCD, PTSD and MDD, and was admitted on 05/16/22 22:30 on a 201 voluntary commitment for severe depression with inability to function. Chief Complaint "I just don't know if my therapist knows how to help me enough". Review of Systems Sleep Information Total Hours of Sleep: 7.75 Meal Information Percent Meal Consumed - Breakfast: 100 Percent Meal Consumed - Lunch: 100 Percent Meal Consumed - Dinner: 100 Subjective Subjective Patient was seen & assessed and interval progress reviewed with treatment team nursing and social work. In[place] last night his mood started to improve a little bit today he states that remains somewhat improved noting "I am not constantly over thinking everything". However he does continue to feel that his OCD thoughts are intense and continues to experience heightened anxiety and recognizes that he continues to have emotional lability with periods of low mood that seem to come on quickly. He has trouble not by not being able to identify what causes these changes in mood or what set off acute worsening of his OCD symptoms. We reviewed again his recent symptoms and past psychiatric history particularly because he had discussed history of syl with his mother. She agreed with him that while he has demonstrated some symptoms of syl in the past any of these symptoms could have also been due to heightened anxiety. We also discussed that he struggled in school with attention over the years was diagnosed with multiple learning disabilities and possibility of component of ADHD contributing to some past and current challenges including sense of urgency related to symptoms and needing a "quick fix". He continues to struggle to tolerate more distressing emotional states and wanting others to be able to "help me enough" and we also review his recent health journey and whether or not this is veered into the realm of becoming obsessional about calories and intake/orthorexia. He denies that his mood is impacted by whether or not he has a "good day or bad day" in terms of food intake but rather states that he stopped eating junk food and soda because "it just does not taste good anymore and it does not make me feel good it makes me really tired". Reviewed warning signs to watch out for if he did start to become more obsessional about caloric intake or excessively worry about weight gain. Physical Exam Psychiatric Orientation: alert and oriented x 3 Apperance: appropriately dressed and appropriately groomed Eye Contact: good eye contact Motor Behavior: no abnormal motor movements Speech: normal rate/rhythm/volume of speech (slightly hyperverbal but interruptable) Affect: + anxious affect and + irritable affect Mood: + depressed mood, + anxious mood and + irritable mood Thought Process: + circumstantial thought process Thought Content: + obsessions and reality based without delusions Suicidal Thoughts: denies suicidal thoughts Homicidal Thoughts: denies homicidal thoughts Hallucinations: no auditory hallucinations and no visual hallucinations Cognition: recent memory grossly intact, remote memory grossly intact, attention grossly intact and language grossly intact Estimated Intelligence: consistent with education level Insight: + fair insight Judgement: + fair judgement Vital Signs (Past 24 Hours) Last Vital Signs Temp 36.3 C L 05/19/22 06:00 Pulse 79 05/19/22 06:29 Resp 16 05/19/22 06:00 BP 115/61 05/19/22 06:29 Pulse Ox 98 05/19/22 06:00 O2 Del Method 05/19/22 06:00 Results & Data ([facility]) Current Inpatient Medications Current Inpatient Medications: Current Inpatient Medications Acetaminophen (Acetaminophen 325 Mg Tab) 650 mg PO Q4H PRN PRN Reason: Headache or Minor Fever Stop: 06/15/22 22:28 Al Hydrox/Mg Hydrox/Simethicone (Aluminum/Magnesium Susp 30 Ml Udc) 30 ml PO Q4H PRN PRN Reason: GI Upset Stop: 06/15/22 22:28 Bismuth Subsalicylate (Bismuth Subsalicylate Liqd 236 Ml) 15 ml PO PRN PRN PRN Reason: Loose Stool Stop: 06/15/22 22:28 Buspirone HCl (Buspirone 5 Mg Tab) 20 mg PO HS [facility] Stop: 06/16/22 21:59 Last Admin: 05/18/22 21:20 Dose: 20 mg Buspirone HCl (Buspirone 5 Mg Tab) 10 mg PO DAILY [facility] Stop: 06/16/22 08:59 Last Admin: 05/19/22 08:35 Dose: 10 mg Duloxetine HCl (Duloxetine Hcl 30 Mg Cap) 30 mg PO BID [facility] Stop: 06/16/22 08:59 Last Admin: 05/19/22 08:35 Dose: 30 mg Gabapentin (Gabapentin 300 Mg Cap) 300 mg PO HS [facility] Stop: 06/16/22 21:59 Last Admin: 05/18/22 21:16 Dose: 300 mg Hydroxyzine HCl (Hydroxyzine Hcl 25 Mg Tab) 50 mg PO HSZ PRN PRN Reason: Insomnia Stop: 06/15/22 22:28 Hydroxyzine HCl (Hydroxyzine Hcl 25 Mg Tab) 25 mg PO Q4H PRN PRN Reason: Anxiety Stop: 06/15/22 22:28 Lamotrigine (Lamotrigine 100 Mg Tab) 150 mg PO BID [facility] Stop: 06/16/22 20:59 Last Admin: 05/19/22 08:34 Dose: 150 mg Lurasidone HCl (Lurasidone Hcl 40 Mg Tab) 40 mg PO QDD [facility] Stop: 06/16/22 17:44 Last Admin: 05/18/22 17:48 Dose: 40 mg Magnesium Hydroxide (Magnesium Hydroxide Susp 30 Ml Udc) 30 ml PO DAILY PRN PRN Reason: Constipation Stop: 06/15/22 22:28 Sodium Chloride (Sodium Chloride 0.65% Na Soln 45 Ml ([place])) 1 - 2 sprays NA PRN PRN PRN Reason: Nasal Dryness/Congestion Stop: 06/15/22 22:28 Mental Health & Subst Abuse Tx Psychiatrist Name of Psychiatrist: [place] [facility] Psychiatrist's Date of Appointment with Psychiatrist: 06/05/22 Time of Appointment with Psychiatrist: 4:00 p.m. Psychiatric Appointment Comment: [address] [facility] Therapist Name of Therapist: [facility] Therapist's Date of Therapist Appointment: 05/25/22 Therapy Appointment Comment: Return to your normal scheduling Juvenile Court Liaison Name of Juvenile Court Liaison: . Post Discharge Appointments Primary Care Physician Name Of Family Doctor: N[facility] Date of Appointment with PCP: 05/26/22 Time of Appointment with PCP: 11:30 AM Provider Appointment Comment: [facility] [id number] Partial or Psych Rehab Name of Partial or Psych Rehab: [facility] Date of Appointment at Partial or Psych Rehab: 05/23/22 Partial or Psych Rehab Appointment Comment: Return to your normal scheduling Contact Information Discharge Discharge Address: [address] [place] [address] (1) OCD (obsessive compulsive disorder) Obsessive-compulsive disorder type: unspecified Qualified Code(s): F42.9 - Obsessive-compulsive disorder, unspecified
[2022-05-19] MEDS: LURASIDONE HCL 40 MG TAB PO SCH (17:24)
[2022-05-19] MEDS: GABAPENTIN 300 MG CAP PO SCH (22:14)
[2022-05-20] MEDS: DULoxetine HCL 30 MG CAP PO SCH ×2 (08:52→21:05)
[2022-05-20] MEDS: busPIRone 5 MG TAB PO SCH ×2 (08:52→21:07)
[2022-05-20] MEDS: lamoTRIgine 100 MG TAB PO SCH ×2 (08:53→21:06)
--- NOTE | 2022-05-20 13:29 | Psychiatric Progress Note ---
Date of Service May 20, 2022 Impression / Recommendations Impression The patient is a 21 year old with a history of OCD, childhood trauma, MDD, PTSD and possible BPAD who was admitted for failure of self-care due to severe depression and OCD. dx ADHD. Restless legs are responding to Neurontin. 05/20/22: improving (1) Unspecified mood [affective] disorder: (2) OCD (obsessive compulsive disorder): (3) Fibromyalgia: (4) Anxiety: (5) ADHD (attention deficit hyperactivity disorder), combined type: Plan 05/20/22: continue current meds and treatment plan. 05/19/22: Add guanfacine ER 1mg qd for ADHD symptoms, no stimulant trials and rx not appropriate given possible orthorexia. Continue other medications and tx plan. Had family meeting. 05/18/22: Continue with current medications and treatment plan. Discussed option of augmentation with Depakote which he will consider. 05/17/22: The patient was admitted to the [facility] ([facility]) on q15 min checks (behavioral with suicide precautions) for safety. The patient will participate in group, recreational, and milieu therapies and will be offered additional individual and family sessions as clinically appropriate. -Continue with Buspar, Lamictal, Cymbalta -Stop Mirapex and start gabapentin 300mg qhs -Change latuda to with dinner as he was not taking it with food at bedtime Inventory Assets Strengths: resilient, good self-advocate, supportive family, outpatient services Needs: safety and stabilization, medication adjustment, additional coping skills, increased outpatient services Suicide Risk Level Suicide Risk Level: Moderate (q15 min suicide checks) Suicide Risk Level Comments: Moderate due to severe anxiety and depression but feels safe in the hospital, able to safety contract and agrees to let nursing/staff know should he develop active SI, plan, intent or feel unable to remain safe. Risk Factors Assessment Male: Yes : Yes Do You Have Access To A Gun?: No Health Problems: Yes Mental Health Diagnoses: Yes Substance Use Disorders: No Previous Attempt: No Family History of Suicide: Yes Previous Psychiatric Hospitalization: Yes Hopelessness: Yes Protective Factors Assessment Employed: No (seeking emoployment) Stable Relationships: Yes Supportive Family: Yes Good Rapport with Provider: Yes Interval History Identifying Information ALICE TYSON is a 21-year-old M who currently lives in [place] with his parents, has a history of BPAD, OCD, PTSD and MDD, and was admitted on 05/16/22 22:30 on a 201 voluntary commitment for severe depression with inability to function. Chief Complaint "I feel like there was a turning point.". Review of Systems Sleep Information Total Hours of Sleep: 6.5 Meal Information Percent Meal Consumed - Breakfast: 100 Percent Meal Consumed - Lunch: 100 Percent Meal Consumed - Dinner: 100 Subjective Subjective Patient was seen & assessed and interval progress reviewed with nursing and social work. Reports improvement in mood. Feels he is able to redirect his thoughts. Started first dose of Intuniv this am as trial for restlessness/fidgeting that was being treated as restless legs but that combined with his history of dysregulation as a child and baselined talkativeness (when not manic) were felt to meet criteria for ADHD by Dr. Peterson. He is low risk of misuse/diversion but felt appropriate for nonstimulant rx given his mood hx. Physical Exam Psychiatric Orientation: alert and oriented x 3 Apperance: appropriately dressed and appropriately groomed Eye Contact: good eye contact Motor Behavior: no abnormal motor movements Speech: normal rate/rhythm/volume of speech (slightly hyperverbal but interruptable) Affect: euthymic affect Mood: + anxious mood Thought Process: + circumstantial thought process Thought Content: reality based without delusions Suicidal Thoughts: denies suicidal thoughts Homicidal Thoughts: denies homicidal thoughts Hallucinations: no auditory hallucinations and no visual hallucinations Cognition: recent memory grossly intact, remote memory grossly intact, attention grossly intact and language grossly intact Estimated Intelligence: consistent with education level Vital Signs (Past 24 Hours) Last Vital Signs Temp 36.5 C 05/20/22 06:35 Pulse 73 05/20/22 06:35 Resp 18 05/20/22 06:35 BP 112/65 05/20/22 06:35 Pulse Ox 98 05/19/22 06:00 O2 Del Method 05/19/22 06:00 Results & Data ([facility]) Current Inpatient Medications Current Inpatient Medications: Current Inpatient Medications Acetaminophen (Acetaminophen 325 Mg Tab) 650 mg PO Q4H PRN PRN Reason: Headache or Minor Fever Stop: 06/15/22 22:28 Al Hydrox/Mg Hydrox/Simethicone (Aluminum/Magnesium Susp 30 Ml Udc) 30 ml PO Q4H PRN PRN Reason: GI Upset Stop: 06/15/22 22:28 Bismuth Subsalicylate (Bismuth Subsalicylate Liqd 236 Ml) 15 ml PO PRN PRN PRN Reason: Loose Stool Stop: 06/15/22 22:28 Buspirone HCl (Buspirone 5 Mg Tab) 20 mg PO HS LEAH Stop: 06/16/22 21:59 Last Admin: 05/19/22 22:14 Dose: 20 mg Buspirone HCl (Buspirone 5 Mg Tab) 10 mg PO DAILY LEAH Stop: 06/16/22 08:59 Last Admin: 05/20/22 08:52 Dose: 10 mg Duloxetine HCl (Duloxetine Hcl 30 Mg Cap) 30 mg PO BID LEAH Stop: 06/16/22 08:59 Last Admin: 05/20/22 08:52 Dose: 30 mg Gabapentin (Gabapentin 300 Mg Cap) 300 mg PO HS LEAH Stop: 06/16/22 21:59 Last Admin: 05/19/22 22:14 Dose: 300 mg Guanfacine HCl (Guanfacine Hcl 1 Mg Ertab) 1 mg PO DAILY LEAH Stop: 06/19/22 08:59 Last Admin: 05/20/22 08:52 Dose: 1 mg Hydroxyzine HCl (Hydroxyzine Hcl 25 Mg Tab) 50 mg PO HSZ PRN PRN Reason: Insomnia Stop: 06/15/22 22:28 Hydroxyzine HCl (Hydroxyzine Hcl 25 Mg Tab) 25 mg PO Q4H PRN PRN Reason: Anxiety Stop: 06/15/22 22:28 Lamotrigine (Lamotrigine 100 Mg Tab) 150 mg PO BID LEAH Stop: 06/16/22 20:59 Last Admin: 05/20/22 08:53 Dose: 150 mg Lurasidone HCl (Lurasidone Hcl 40 Mg Tab) 40 mg PO QDD LEAH Stop: 06/16/22 17:44 Last Admin: 05/19/22 17:24 Dose: 40 mg Magnesium Hydroxide (Magnesium Hydroxide Susp 30 Ml Udc) 30 ml PO DAILY PRN PRN Reason: Constipation Stop: 06/15/22 22:28 Sodium Chloride (Sodium Chloride 0.65% Na Soln 45 Ml (Randall)) 1 - 2 sprays NA PRN PRN PRN Reason: Nasal Dryness/Congestion Stop: 06/15/22 22:28 Mental Health & Subst Abuse Tx Psychiatrist Name of Psychiatrist: Isabel Frazier Psychiatrist's Date of Appointment with Psychiatrist: 06/05/22 Time of Appointment with Psychiatrist: 4:00 p.m. Psychiatric Appointment Comment: [address] [facility] Therapist Name of Therapist: [facility] - Robin Ridley Therapist's Date of Therapist Appointment: 05/25/22 Therapy Appointment Comment: Return to your normal scheduling [facility] Name of [facility]: . Post Discharge Appointments Primary Care Physician Name Of Family Doctor: NINA Fairchild [facility] Date of Appointment with PCP: 05/26/22 Time of Appointment with PCP: 11:30 AM Provider Appointment Comment: [address] [facility] [id number] Partial or Psych Rehab Name of Partial or Psych Rehab: [facility] Date of Appointment at Partial or Psych Rehab: 05/23/22 Partial or Psych Rehab Appointment Comment: Return to your normal scheduling Contact Information Discharge Discharge Address: [address] [place] [address] (1) OCD (obsessive compulsive disorder) Obsessive-compulsive disorder type: unspecified Qualified Code(s): F42.9 - Obsessive-compulsive disorder, unspecified
[2022-05-20] MEDS: LURASIDONE HCL 40 MG TAB PO SCH (17:12)
[2022-05-20] MEDS: GABAPENTIN 300 MG CAP PO SCH (21:09)
[2022-05-21] MEDS: busPIRone 5 MG TAB PO SCH (08:24)
[2022-05-21] MEDS: lamoTRIgine 100 MG TAB PO SCH (08:25)
[2022-05-21] MEDS: DULoxetine HCL 30 MG CAP PO SCH (08:25)
--- NOTE | 2022-05-21 12:04 | Discharge Summary ---
Date of Service May 21, 2022 History of Present Illness As per Dr. Peterson on Admission: ANASTASIA presents for psychiatric admission for worsening depression in the context of leaving his job but also notes he cannot identify any particular significant stressors so he suspects it's an issue with his medications no longer working. In the last month he found that "things have really gone downhill". He notes that following his boss at his prior job "snapping at me, that's when things really started to go downhill and getting really bad again". He states he's been "really angry and irritable because of my OCD". He notes he is very goal-oriented and was accomplishing a lot including significant weight loss, working out regularly, pursuing dream of being a musician "and then this just kind of happened". He describes symptoms of severe anxiety, "almost on the verge of a mental breakdown" as well as "overthinking everything and thinking no stop to the point that I can't function or do anything". Notes he cannot do any of his hobbies and "talks in circles" which strains his relationship with his parents and now he notices increased irritability and depression with helplessness and hopelessness. He describes an increase in verbal aggression, states he's been slamming stuff and trying to break stuff due to irritability which he notes he not usual for him. He endorses depressive symptoms including anhedonia, tearfulness, hopelessness, helplessness, decreased energy, decreased motivation, decreased concentration, increased sleep last few days ~>10 hours per night, stable appetite. He's also had periods of passive SI. He endorses anxiety symptoms including excessive worry, restlessness, fatigue, irritability, decreased concentration. He is currently prescribed psychiatric medications of: Buspar, Cymbalta (dose increased yesterday to further target OCD symptoms, also helps with his fibromyalgia), Lamictal, Latuda and Mirapex for restless legs. Psychiatric ROS notable for history of sdecreased sleep a few months ago with some increased energy and exercising at night-no clear description for past syl but he feels he has experienced syl before and that it was diagnosed in childhood, hx childhood psychosis in context of severe bullying, hx PTSD, no hx of eating disorder, no hx self-harm. Physical Exam Psychiatric See admission H&P and DOD assessment. Vital Signs (Past 24 Hours) Last Vital Signs Temp 36.6 C 05/21/22 11:36 Pulse 66 05/21/22 11:36 Resp 18 05/21/22 11:36 BP 121/70 05/21/22 11:36 Pulse Ox 98 05/21/22 11:36 O2 Del Method 05/19/22 06:00 Principal Diagnosis major depressive disorder Psychiatric Data See daily stay summary. In short, safety was maintained and the patient was cooperative with care. Medication changes included Neurontin replacing Mirapex, initiation of Intuniv for ADHD hx, and shift in Latuda dosing to evening meal to help with absorption. They tolerated this well and noted significant improvement in mood and energy and decrease in restlessness. A family session was held and safety plan was completed prior to discharge. Re-reviewed risks/benefits/alternatives re: current medications, including but not limited to risks of Rohit's Zelalem reaction, need for longer term monitoring for metabolic/TD, bradycardia, etc. Day of Discharge Assessment Today the patient voices readiness for discharge. They note improvement in mood and deny thoughts to harm self or others. Thoughts remain organized and they are improved from admission. There is no evidence of psychosis. They agree to take mediations as prescribed and keep follow-up appointments. They are stable for discharge to outpatient level of care. Transition of Care Transition Of Care Record: was reviewed with the patient Advance Directives Advance Directives Information Provided: Yes Advance Directives: No Mental Health Advance Directive: No Advance Directives on File: No Living Will: No Power of Protector Plate Attacher: No Advance Directives Reason:: Declines as Mental Health Visit. Risk Factors Assessment Male: Yes : Yes Do You Have Access To A Gun?: No Health Problems: Yes Mental Health Diagnoses: Yes Substance Use Disorders: No Previous Attempt: No Family History of Suicide: Yes Previous Psychiatric Hospitalization: Yes Hopelessness: Yes Protective Factors Assessment Employed: No (seeking employment) Stable Relationships: Yes Supportive Family: Yes Good Rapport with Provider: Yes Tobacco Cessation at Discharge Tobacco Cessation Medication Prescribed at Discharge: Not Applicable/Non-Smoker Antipsychotic Medications Total Time Total Time Spent: Greater Than 30 Minutes Total Time Includes: Examination of the patient, Discharge Planning and Medication Reconciliation Discharge Data Lab Results 05/16/22 05/16/22 05/16/22 19:45 19:45 20:02 WBC 7.23 RBC 5.55 Hgb 16.0 Hct 46.8 MCV 84.3 MCH 28.8 MCHC 34.2 RDW Std Deviation 40.6 RDW Coeff of Juan Alberto 13.2 Plt Count 299 MPV 9.8 Immature Gran % (Auto) 0.3 Neut % (Auto) 60.6 Lymph % (Auto) 34.4 Dauphin % (Auto) 4.4 Eos % (Auto) 0.0 Baso % (Auto) 0.3 Neut # (Auto) 4.38 Lymph # (Auto) 2.49 Dauphin # (Auto) 0.32 Eos # (Auto) 0.00 Baso # (Auto) 0.02 Immature Gran # (Auto) 0.02 Sodium Potassium Chloride Carbon Dioxide Anion Gap BUN Creatinine Est Cr Clr Drug Dosing Est GFR ( Amer) Est GFR (Non-Af Amer) BUN/Creatinine Ratio Glucose Fasting Glucose Calcium Total Bilirubin AST ALT Alkaline Phosphatase Total Protein Albumin Globulin Albumin/Globulin Ratio Triglycerides Cholesterol LDL Cholesterol, Calc VLDL Cholesterol, Calc HDL Cholesterol Cholesterol/HDL Ratio TSH Urine Color Yellow Urine Appearance Clear Urine pH 7.0 Ur Specific Hallock 1.027 Urine Protein Negative Urine Glucose (UA) Negative Urine Ketones Trace H Urine Blood Negative Urine Nitrite Negative Urine Bilirubin Negative Urine Urobilinogen Positive H Ur Leukocyte Esterase Negative Salicylates Urine Opiates Screen Neg Ur Methadone, Qual Neg Acetaminophen Urine Barbiturates Neg Ur Phencyclidine (PCP) Neg U Amphetamin/Meth Scrn Neg MDMA (Ecstasy) Screen Neg U Benzodiazepines Scrn Neg Ur Cocaine Metabolite Neg U Marijuana (THC) Screen Neg Ethyl Alcohol mg/dL SARS-CoV-2, RNA, NAAT 05/16/22 05/16/22 05/16/22 20:02 20:02 20:02 WBC RBC Hgb Hct MCV MCH MCHC RDW Std Deviation RDW Coeff of Juan Alberto Plt Count MPV Immature Gran % (Auto) Neut % (Auto) Lymph % (Auto) Dauphin % (Auto) Eos % (Auto) Baso % (Auto) Neut # (Auto) Lymph # (Auto) Dauphin # (Auto) Eos # (Auto) Baso # (Auto) Immature Gran # (Auto) Sodium 139 Potassium 4.2 Chloride 104 Carbon Dioxide 27 Anion Gap 8 BUN 21 Creatinine 1.12 Est Cr Clr Drug Dosing 118.9 Est GFR ( Amer) 109.0 Est GFR (Non-Af Amer) 94.1 BUN/Creatinine Ratio 18.8 Glucose 92 Fasting Glucose Calcium 9.4 Total Bilirubin 0.6 AST 138 H ALT 65 H Alkaline Phosphatase 95 Total Protein 7.4 Albumin 4.9 Globulin 2.5 Albumin/Globulin Ratio 2.0 Triglycerides Cholesterol LDL Cholesterol, Calc VLDL Cholesterol, Calc HDL Cholesterol Cholesterol/HDL Ratio TSH 0.694 Urine Color Urine Appearance Urine pH Ur Specific Hallock Urine Protein Urine Glucose (UA) Urine Ketones Urine Blood Urine Nitrite Urine Bilirubin Urine Urobilinogen Ur Leukocyte Esterase Salicylates < 3.0 L Urine Opiates Screen Ur Methadone, Qual Acetaminophen < 3 L Urine Barbiturates Ur Phencyclidine (PCP) U Amphetamin/Meth Scrn MDMA (Ecstasy) Screen U Benzodiazepines Scrn Ur Cocaine Metabolite U Marijuana (THC) Screen Ethyl Alcohol mg/dL SARS-CoV-2, RNA, NAAT 05/16/22 05/16/22 05/18/22 20:02 20:40 08:18 WBC RBC Hgb Hct MCV MCH MCHC RDW Std Deviation RDW Coeff of Juan Alberto Plt Count MPV Immature Gran % (Auto) Neut % (Auto) Lymph % (Auto) Dauphin % (Auto) Eos % (Auto) Baso % (Auto) Neut # (Auto) Lymph # (Auto) Dauphin # (Auto) Eos # (Auto) Baso # (Auto) Immature Gran # (Auto) Sodium Potassium Chloride Carbon Dioxide Anion Gap BUN Creatinine Est Cr Clr Drug Dosing Est GFR ( Amer) Est GFR (Non-Af Amer) BUN/Creatinine Ratio Glucose Fasting Glucose 87 Calcium Total Bilirubin AST ALT Alkaline Phosphatase Total Protein Albumin Globulin Albumin/Globulin Ratio Triglycerides 59 Cholesterol 176 LDL Cholesterol, Calc 118 VLDL Cholesterol, Calc 12 HDL Cholesterol 46 Cholesterol/HDL Ratio 3.8 TSH Urine Color Urine Appearance Urine pH Ur Specific Hallock Urine Protein Urine Glucose (UA) Urine Ketones Urine Blood Urine Nitrite Urine Bilirubin Urine Urobilinogen Ur Leukocyte Esterase Salicylates Urine Opiates Screen Ur Methadone, Qual Acetaminophen Urine Barbiturates Ur Phencyclidine (PCP) U Amphetamin/Meth Scrn MDMA (Ecstasy) Screen U Benzodiazepines Scrn Ur Cocaine Metabolite U Marijuana (THC) Screen Ethyl Alcohol mg/dL < 10.0 SARS-CoV-2, RNA, NAAT NEGATIVE Hospital Course (1) Major depression: (2) Unspecified mood [affective] disorder: (3) OCD (obsessive compulsive disorder): (4) Fibromyalgia: (5) Anxiety: (6) ADHD (attention deficit hyperactivity disorder), combined type: (7) Bipolar disorder: by history Plan 05/20/22: continue current meds and treatment plan. 05/19/22: Add guanfacine ER 1mg qd for ADHD symptoms, no stimulant trials and rx not appropriate given possible orthorexia. Continue other medications and tx plan. Had family meeting. 05/18/22: Continue with current medications and treatment plan. Discussed option of augmentation with Depakote which he will consider. 05/17/22: The patient was admitted to the [facility] ([facility]) on q15 min checks (behavioral with suicide precautions) for safety. The patient will participate in group, recreational, and milieu therapies and will be offered additional individual and family sessions as clinically appropriate. -Continue with Buspar, Lamictal, Cymbalta -Stop Mirapex and start gabapentin 300mg qhs -Change latuda to with dinner as he was not taking it with food at bedtime Mental Health & Subst Abuse Tx Psychiatrist Name of Psychiatrist: Isabel Frazier Psychiatrist's Date of Appointment with Psychiatrist: 06/05/22 Time of Appointment with Psychiatrist: 4:00 p.m. Psychiatric Appointment Comment: [address] [facility] Psychiatrist Release of Information: Obtained, Reviewed and Signed Therapist Name of Therapist: [facility] - [facility] Therapist's Date of Therapist Appointment: 05/25/22 Therapy Appointment Comment: Return to your normal scheduling Therapist Release of Information: Obtained, Reviewed and Signed Airconditioning Engineer Name of Airconditioning Engineer: . Post Discharge Appointments Primary Care Physician Name Of Family Doctor: NINA Fairchild [facility] Date of Appointment with PCP: 05/26/22 Time of Appointment with PCP: 11:30 AM Provider Appointment Comment: [address] [facility] [id number] Primary Care Release of Information: Obtained, Reviewed and Signed Partial or Psych Rehab Name of Partial or Psych Rehab: [facility] Date of Appointment at Partial or Psych Rehab: 05/23/22 Partial or Psych Rehab Appointment Comment: Return to your normal scheduling Smoking Cessation Counseling Tobacco Cessation Medication Prescribed at Discharge: Not Applicable/Non-Smoker Other #1: Name of Aftercare Appointment: [facility] Phone Number of Aftercare Appointment: Time of Aftercare Appointment: Call or visit [email or web address] Aftercare Appointment Comment: for more information. Contact Information Discharge Discharge Address: [address] [place] [address] Discharge Plan Discharge Items Patient Disposition: Home - Self-Care Reason For Visit: MDD Discharge Diagnosis: major depressive disorder Activity: Resume your previous activity Non-emergency contact: Primary Care Provider, Psychiatrist and Therapist Call non-emergency contact if: you have any medication questions and your symp toms worsen Follow-up/Referrals: Nahomy Fairchild MD [Primary Care Provider] - Diet: Regular Addtl Attending Provider Instructions: SPECIAL CARE INSTRUCTIONS: 1. Follow through with your scheduled aftercare appointments. If unable to keep an appointment, please call to reschedule. 2. Take your medication only as prescribed. Medication should not be changed or stopped without the approval of your doctor. In the event of worsening symptoms or concerns about side effects, contact your doctor immediately. 3. Utilize new healthy coping skills, anger management skills, and stress management skills learned during your hospitalization. Journal feelings and process them with a support person. Identify stressors or situations that may result in relapse, deterioration or inappropriate behaviors and develop a plan to deal with those issues. 4. If your coping skills are ineffective and you are in crisis, contact your outpatient providers for direction. If unable to reach your providers, please call the [facility] CRISIS LINE AT , go to the [facility] walk-in center at [address] [facility], [address], [place], or go to the closest Emergency Room. 5. Avoid alcohol and un-prescribed drugs. 6. You have been provided with the Mental Health Advance Directives Pamphlet for your review. 7. Your condition is stable for discharge to outpatient level of care, but recovery is an ongoing process. Ifthoughts to harm yourself or others return, follow the safety plan developed during your stay. Planning for a safe return home includes securing weapons. Our treatment team recommends weaponsbe removed from the home until your outpatient provider reassesses your progress. In rare cases where the items themselvescannot be removed, guns and ammunitionshould be secured separatelyand keys stored by a reliable personoutside of the home. If you were admitted on an involuntary commitment, the police or other legal authorities may be involved in this process. AFTERCARE APPOINTMENTS: * Please call your insurance company prior to your scheduled appointment to confirm your aftercare providers are covered. Take your insurance information to your appointments. WHO TO CALL AND WHEN: Medical Emergencies: For questions or emergencies related to your hospital stay, please contact the Inpatient Behavioral Health Unit at [phone]. A chief technical officer is on-call 30/04 for the Behavioral Health Unit for emergencies At any time you feel your situation is an emergency, you may also call 911 immediately. Pending Studies at Discharge: No Stand-Alone Forms: My [facility], Smoking Cessation Medications and DC Order Prescriptions: New guanfacine 1 mg Tablet Extended Release 24 Hr 1 mg PO DAILY 30 Days Qty: 30 0RF Rx Instructions: dx F90.2 lamotrigine [Lamictal] 150 mg tablet 150 mg PO BID 30 Days Qty: 60 0RF gabapentin 300 mg Capsule 300 mg PO HS 30 Days Qty: 30 0RF Latuda 40 mg Tablet 40 mg PO QDD Qty: 30 0RF Continued duloxetine [Cymbalta] 30 mg capsule,delayed release(DR/EC) 30 mg PO BID Qty: 60 2RF Rx Instructions: BID to start today 05/16/22, did not take PM dose buspirone 10 mg Tablet 10 mg PO DAILY buspirone 30 mg Tablet 20 mg PO HS Changed Latuda 20 mg tablet 40 mg PO QDD Qty: 1 0RF Rx Instructions: must administer with food (at least 350 calories) Discontinued lamotrigine [Lamictal] 100 mg Tablet 0 mg PO BID Rx Instructions: UNKNOWN DOSAGE pramipexole [Mirapex] 1 mg Tablet 1 mg PO HS Discharge Orders: Discharge Order (Routine); Ordered 05/21/22 Ordered By: Vickie Del Valle Admission Data Admit Date/Time: 05/16/22 22:30 Attending Provider: Vickie Del Valle Admit Provider: Ana Maria Peterson Primary Care Provider: Nahomy Fairchild Other Interventions: Discharge Summary Assessment (RN) Last Done: 05/21/22 11:36 PSY Interdisciplinary Discharge Planning Last Done: 05/21/22 11:36 Coding Level of Care Code 19313 D/C day mgmt > 30 min Diagnoses Major depression F32.9 Unspecified mood [affective] disorder F39 OCD (obsessive compulsive disorder) F42.9 Obsessive-compulsive disorder type: unspecified Fibromyalgia M79.7 Anxiety F41.9 ADHD (attention deficit hyperactivity disorder), combined type F90.2 Bipolar disorder F31.9
== END 2022-05-21 11:55 | disposition home or self-care (01) | DRG 881 ==
LOC: ED 19:18 → SUATTDRO 22:30 → 3S 22:30 → ED 22:42 → 3S 05-17 09:37
DX: F32.9 Major depressive disorder, single episode, unspecified; F42.9 Obsessive-compulsive disorder, unspecified; M79.7 Fibromyalgia; F41.9 Anxiety disorder, unspecified

== ENCOUNTER 2022-09-17 15:40 | Inpatient (IN) ==
--- NOTE | 2022-09-17 15:49 | Emergency Department Note ---
Impression & Plan Suicidal ideations, Depression ED Provider Note NAME: ALICE TYSON AGE: 21 SEX: M : 2000 ARRIVES VIA: Walk-In INFORMANT: Patient ED PROVIDER(S): Fan Larson DO CHIEF COMPLAINT: SI HPI: Patient is a 21-year-old male with a past medical history of depression, bipolar, ADHD, OCD, anxiety who presents to the ER for trying to kill himself. He notes it is situational and has been suicidal for the past week. He got into an argument today and he was going to take his full bottle of Effexor to kill himself but his dad stopped him. He was brought in by police. Denies any homicidal ideations. No auditory or visual hallucinations. No other exacerba ting or remitting factors. Denies any chest pain, shortness of breath, nausea, vomiting or diarrhea. ROS: See above HPI for pertinent positives & negatives. A total of 10 systems reviewed and were otherwise negative. PAST MEDICAL HISTORY:See Below PAST SURGICAL HISTORY:See Below FAMILY HISTORY:See Below SOCIAL HISTORY:See Below HOME MEDICATIONS:See Below ALLERGIES:See Below VITALS:See Below PHYSICAL EXAMINATION: GENERAL: Sitting up in bed, alert, well appearing, well nourished, no distress, non-toxic EYE EXAM: normal conjunctiva. OROPHARYNX: mucous membranes are moist LUNGS: Clear to auscultation. Normal chest wall mechanics HEART: no murmurs, S1 normal and S2 normal ABDOMEN: abdomen soft, non-tender, normo-active bowel sounds, no masses, no rebound or guarding. UPPER EXTREMITIES: upper extremities are grossly normal. LOWER EXTREMITIES: No pitting edema. NEURO EXAM: Normal sensorium, cranial nerves II-XII grossly intact, normal speech, no gross weakness of arms, no gross weakness of legs. PSYCH: Denies any homicidal ideations. Denies any auditory visual hallucinations. Admits to suicidal ideations with plan. MEDICAL DECISION MAKING: Patient is a 21-year-old male with a past medical history of bipolar disorder, depression, ADHD and OCD that presents the ER for suicidal ideations with plan and attempted overdose. He never was able to take any of his medications as his father stopped him. Labs were obtained and showed no significant leukocytosis or anemia. BMP along with LFTs bilirubin and TSH was unremarkable. UA was unremarkable. Tox was negative. Alcohol negative. COVID-negative. Patient was observed in the ER close to 7 hours. Patient was referred to 3 S. unable to take at this time due to acuity although they have a open room. They will reassess in the morning. Currently patient is on a 201 and wants to go to 3 S. Patient was signed out to Dr. Angeles at the change of shift. Start Time: 1550 Reason: Patient with PMHx of bipolar underwent ED Observation for Psych evaluation. Fam Hx: No pertinent family history SocHx: See Below Assessment(s): As described above Summary: As described above Disposition: 09/17/2022 at 2230. Total Time: 6hrs 50 minutes Triage Nursing notes reviewed. Limited review of prior medical records performed Vital Signs: reviewed and remarkable for no significant abnormalities Differential diagnosis: Mood disorder, infection, hypoglycemia, electrolyte abnormalities, cardiac sources, intracerebral event, toxicologic, trauma, neurologic, as well as other pathologies. ER treatment provided: See below Diagnostics interpreted by me: ECG: none Laboratory studies: As stated above and show below. Imaging studies: See below Consultation(s): none Procedures: none Critical Care: None Past Med/Surg History Medical History Fibromyalgia [place] use Obesity Surgical History No pertinent past surgical history Family History Mother Diabetes Denies family history of Ovarian cancer Prostate cancer Myocardial infarction Breast cancer Colorectal cancer Hypertension Social History Smoking Status: Never smoker Second Hand Exposure: No; Hx Alcohol Use: No Hx Substance Use: No Preferred Language: Hebrew Communication Ability: Effective Hearing Ability: Normal Photocopying Machine Operator Required: No Beliefs That Will Affect Care: None marital status: Single Current Living Situation: Family Current Living Situation Comment: mother and father current occupational status: unemployed How many Children do You have: 0 Feels Safe at Home: Yes Childhood Exposure to Second-Hand Smoke: No caffeine: No Dental Care, Regularly: Yes Physical Activity Frequency: Daily Physical Activity Frequency Comment: working out Seatbelt Use: always Sunscreen Use: Yes Assistive Devices: None Allergies Allergies Allergy/AdvReac Type Severity Reaction Status Date / Time No Known Allergies AdvReac Unknown Verified 05/16/22 21:24 Home Meds Home Medications Medication Instructions Recorded Confirmed bupropion HCl 300 mg 24 hr tablet, 300 mg PO DAILY 09/17/22 09/17/22 extended release venlafaxine 150 mg 300 mg PO HS 09/17/22 09/17/22 capsule,extended release 24 hr Results & Data (ED) Vital Signs Vital Signs - 24 hr 09/17/22 15:44 09/17/22 21:34 Temperature 36.7 C 37.2 C Temperature Source Oral Oral Pulse Rate 86 Pulse Rate [Right Brachial] 83 Pulse Rhythm [Right Brachial] Regular Pulse Strength [Right Brachial] Normal Respiratory Rate 18 19 Respiratory Effort / Characteristics Non-Labored Non-Labored Spontaneous Respiratory Depth Normal Normal Respiratory Pattern Regular Blood Pressure 120/90 Blood Pressure [Right Arm] 148/74 H Blood Pressure Mean 100 Blood Pressure Mean [Right Arm] 98 Blood Pressure Position Sitting Blood Pressure Position [Right Arm] Lying Pulse Oximetry 98 98 Oxygen Delivery Method Room Air Room Air Sepsis Recent Fever Within 48 Hours No Sepsis New/Unexplained Change in Mental Status N/A Sepsis Action Taken by Nursing No Action Required Laboratory Data Result diagrams: 09/17/22 16:00 09/17/22 16:00 Lab Results 09/17/22 09/17/22 09/17/22 Range/Units 15:50 16:00 16:00 WBC 8.37 (4.8-10.8) K/ul RBC 5.41 (4.63-6.08) M/uL Hgb 16.3 (14.0-18.0) g/dl Hct 47.1 (40.1-51.0) % MCV 87.1 (80.0-100.0) fL MCH 30.1 (25.0-34.0) pg MCHC 34.6 (32.0-36.0) g/dL RDW Std Deviation 41.5 (36.4-46.3) fL RDW Coeff of Juan Alberto 13.2 (11.5-14.5) % Plt Count 262 (130-400) K/uL MPV 9.6 (9.4-12.4) fL Immature Gran % (Auto) 0.1 % Neut % (Auto) 63.7 % Lymph % (Auto) 29.2 % [place] % (Auto) 6.7 % Eos % (Auto) 0.1 % Baso % (Auto) 0.2 % Neut # (Auto) 5.33 (1.4-6.5) K/uL Lymph # (Auto) 2.44 (1.2-3.4) K/uL [place] # (Auto) 0.56 (0.24-0.82) K/uL Eos # (Auto) 0.01 (0-0.50) K/uL Baso # (Auto) 0.02 (0-0.2) K/uL Immature Gran # (Auto) 0.01 (0.00-0.02) K/uL Sodium 139 (136-145) mmol/L Potassium 3.7 (3.5-5.1) mmol/L Chloride 106 (98-107) mmol/L Carbon Dioxide 28 (21-32) mmol/L Anion Gap 5 (3-11) BUN 22 (6-23) mg/dl Creatinine 1.04 (0.6-1.4) mg/dl Est Cr Clr Drug Dosing Not Reportable Est GFR ( Amer) 119.2 ml/min Est GFR (Non-Af Amer) 102.9 ml/min BUN/Creatinine Ratio 21.2 H (10-20) Glucose 91 (70-99(Fasting)) mg/dl Calcium 8.8 (8.5-10.1) mg/dl Total Bilirubin 0.7 (0.2-1.0) mg/dl AST 15 (13-39) U/L ALT 22 (7-52) U/L Alkaline Phosphatase 76 (34-104) U/L Total Protein 6.9 (6.0-8.3) gm/dl Albumin 4.8 (3.4-5.0) gm/dl Globulin 2.1 L (2.5-4.0) gm/dl Albumin/Globulin Ratio 2.3 H (0.9-2) TSH (0.300-4.500) uIu/ml Urine Color Urine Appearance (Clear) Urine pH (4.5-7.5) Ur Specific Anderson (1.000-1.030) Urine Protein (Negative) Urine Glucose (UA) (Negative) Urine Ketones (Negative) Urine Blood (Negative) Urine Nitrite (Negative) Urine Bilirubin (Negative) Urine Urobilinogen (Negative) Ur Leukocyte Esterase (Negative) Urine WBC (Auto) (0-5) /hpf Urine RBC (Auto) (0-4) /hpf U Hyaline Cast (Auto) (0-5) /lpf U Epithel Cells (Auto) (0-5) /lpf Urine Bacteria (Auto) (Negative) Salicylates (3.0-30) mg/dl Urine Opiates Screen (Neg) Ur Methadone, Qual (Neg) Acetaminophen (10-30) ug/ml Urine Barbiturates (Neg) Ur Phencyclidine (PCP) (Neg) U Amphetamin/Meth Scrn (Neg) MDMA (Ecstasy) Screen (Neg) U Benzodiazepines Scrn (Neg) Ur Cocaine Metabolite (Neg) U Marijuana (THC) Screen (Neg) Ethyl Alcohol mg/dL (<10.0) mg/dl SARS-CoV-2, RNA, NAAT NEGATIVE (NEGATIVE) 09/17/22 09/17/22 09/17/22 Range/Units 16:00 16:00 16:00 WBC (4.8-10.8) K/ul RBC (4.63-6.08) M/uL Hgb (14.0-18.0) g/dl Hct (40.1-51.0) % MCV (80.0-100.0) fL MCH (25.0-34.0) pg MCHC (32.0-36.0) g/dL RDW Std Deviation (36.4-46.3) fL RDW Coeff of Juan Alberto (11.5-14.5) % Plt Count (130-400) K/uL MPV (9.4-12.4) fL Immature Gran % (Auto) % Neut % (Auto) % Lymph % (Auto) % [place] % (Auto) % Eos % (Auto) % Baso % (Auto) % Neut # (Auto) (1.4-6.5) K/uL Lymph # (Auto) (1.2-3.4) K/uL [place] # (Auto) (0.24-0.82) K/uL Eos # (Auto) (0-0.50) K/uL Baso # (Auto) (0-0.2) K/uL Immature Gran # (Auto) (0.00-0.02) K/uL Sodium (136-145) mmol/L Potassium (3.5-5.1) mmol/L Chloride (98-107) mmol/L Carbon Dioxide (21-32) mmol/L Anion Gap (3-11) BUN (6-23) mg/dl Creatinine (0.6-1.4) mg/dl Est Cr Clr Drug Dosing Est GFR ( Amer) ml/min Est GFR (Non-Af Amer) ml/min BUN/Creatinine Ratio (10-20) Glucose (70-99(Fasting)) mg/dl Calcium (8.5-10.1) mg/dl Total Bilirubin (0.2-1.0) mg/dl AST (13-39) U/L ALT (7-52) U/L Alkaline Phosphatase (34-104) U/L Total Protein (6.0-8.3) gm/dl Albumin (3.4-5.0) gm/dl Globulin (2.5-4.0) gm/dl Albumin/Globulin Ratio (0.9-2) TSH 0.731 (0.300-4.500) uIu/ml Urine Color Urine Appearance (Clear) Urine pH (4.5-7.5) Ur Specific [place] (1.000-1.030) Urine Protein (Negative) Urine Glucose (UA) (Negative) Urine Ketones (Negative) Urine Blood (Negative) Urine Nitrite (Negative) Urine Bilirubin (Negative) Urine Urobilinogen (Negative) Ur Leukocyte Esterase (Negative) Urine WBC (Auto) (0-5) /hpf Urine RBC (Auto) (0-4) /hpf U Hyaline Cast (Auto) (0-5) /lpf U Epithel Cells (Auto) (0-5) /lpf Urine Bacteria (Auto) (Negative) Salicylates < 3.0 L (3.0-30) mg/dl Urine Opiates Screen (Neg) Ur Methadone, Qual (Neg) Acetaminophen < 3 L (10-30) ug/ml Urine Barbiturates (Neg) Ur Phencyclidine (PCP) (Neg) U Amphetamin/Meth Scrn (Neg) MDMA (Ecstasy) Screen (Neg) U Benzodiazepines Scrn (Neg) Ur Cocaine Metabolite (Neg) U Marijuana (THC) Screen (Neg) Ethyl Alcohol mg/dL < 10.0 (<10.0) mg/dl SARS-CoV-2, RNA, NAAT (NEGATIVE) 09/17/22 09/17/22 Range/Units 17:15 17:15 WBC (4.8-10.8) K/ul RBC (4.63-6.08) M/uL Hgb (14.0-18.0) g/dl Hct (40.1-51.0) % MCV (80.0-100.0) fL MCH (25.0-34.0) pg MCHC (32.0-36.0) g/dL RDW Std Deviation (36.4-46.3) fL RDW Coeff of Juan Alberto (11.5-14.5) % Plt Count (130-400) K/uL MPV (9.4-12.4) fL Immature Gran % (Auto) % Neut % (Auto) % Lymph % (Auto) % [place] % (Auto) % Eos % (Auto) % Baso % (Auto) % Neut # (Auto) (1.4-6.5) K/uL Lymph # (Auto) (1.2-3.4) K/uL [place] # (Auto) (0.24-0.82) K/uL Eos # (Auto) (0-0.50) K/uL Baso # (Auto) (0-0.2) K/uL Immature Gran # (Auto) (0.00-0.02) K/uL Sodium (136-145) mmol/L Potassium (3.5-5.1) mmol/L Chloride (98-107) mmol/L Carbon Dioxide (21-32) mmol/L Anion Gap (3-11) BUN (6-23) mg/dl Creatinine (0.6-1.4) mg/dl Est Cr Clr Drug Dosing Est GFR ( Amer) ml/min Est GFR (Non-Af Amer) ml/min BUN/Creatinine Ratio (10-20) Glucose (70-99(Fasting)) mg/dl Calcium (8.5-10.1) mg/dl Total Bilirubin (0.2-1.0) mg/dl AST (13-39) U/L ALT (7-52) U/L Alkaline Phosphatase (34-104) U/L Total Protein (6.0-8.3) gm/dl Albumin (3.4-5.0) gm/dl Globulin (2.5-4.0) gm/dl Albumin/Globulin Ratio (0.9-2) TSH (0.300-4.500) uIu/ml Urine Color Yellow Urine Appearance Clear (Clear) Urine pH 8.0 H (4.5-7.5) Ur Specific [place] 1.011 (1.000-1.030) Urine Protein Negative (Negative) Urine Glucose (UA) Negative (Negative) Urine Ketones Negative (Negative) Urine Blood Negative (Negative) Urine Nitrite Negative (Negative) Urine Bilirubin Negative (Negative) Urine Urobilinogen Negative (Negative) Ur Leukocyte Esterase Trace H (Negative) Urine WBC (Auto) 1-5 (0-5) /hpf Urine RBC (Auto) 0-4 (0-4) /hpf U Hyaline Cast (Auto) 0 (0-5) /lpf U Epithel Cells (Auto) 0-5 (0-5) /lpf Urine Bacteria (Auto) Negative (Negative) Salicylates (3.0-30) mg/dl Urine Opiates Screen Neg (Neg) Ur Methadone, Qual Neg (Neg) Acetaminophen (10-30) ug/ml Urine Barbiturates Neg (Neg) Ur Phencyclidine (PCP) Neg (Neg) U Amphetamin/Meth Scrn Neg (Neg) MDMA (Ecstasy) Screen Neg (Neg) U Benzodiazepines Scrn Neg (Neg) Ur Cocaine Metabolite Neg (Neg) U Marijuana (THC) Screen Neg (Neg) Ethyl Alcohol mg/dL (<10.0) mg/dl SARS-CoV-2, RNA, NAAT (NEGATIVE) Discharge Plan Visit Data Chief Complaint: Mental Health Evaluation Stated Complaint: [facility] ED Provider: Fan Larson Discharge Problem: Suicidal ideations, Depression Forms Stand Alone Forms: My [facility], Suicide Prevention Resources Prescriptions Prescriptions: No Action venlafaxine 150 mg capsule,extended release 24hr 300 mg PO HS bupropion HCl 300 mg tablet extended release 24 hr 300 mg PO DAILY Referrals Referrals: Nahomy Fairchild MD [Primary Care Provider] -
[2022-09-17 16:14] LABS: Basophils # (auto) 0.02 K/uL (0-0.2); Basophils % (auto) 0.2 %; Eosinophils # (auto) 0.01 K/uL (0-0.50); Eosinophils % (auto) 0.1 %; Hematocrit (blood only) 47.1 % (40.1-51.0); Hemoglobin 16.3 g/dl (14.0-18.0); Immature Granulocytes # (auto) 0.01 K/uL (0.00-0.02); Immature Granulocytes % (auto) 0.1 %; Lymphocytes # (auto) 2.44 K/uL (1.2-3.4); Lymphocytes % (auto) 29.2 %; Mean Corpuscular Hemoglobin 30.1 pg (25.0-34.0); Mean Corpuscular Hgb Conc 34.6 g/dL (32.0-36.0); Mean Corpuscular Volume 87.1 fL (80.0-100.0); Mean Platelet Volume 9.6 fL (9.4-12.4); Monocytes # (auto) 0.56 K/uL (0.24-0.82); Monocytes % (auto) 6.7 %; Neutrophils # (auto) 5.33 K/uL (1.4-6.5); Neutrophils % (auto) 63.7 %; Platelet Count 262 K/uL (130-400); RDW Coefficient of Variation 13.2 % (11.5-14.5); RDW Standard Deviation 41.5 fL (36.4-46.3); Red Blood Count 5.41 M/uL (4.63-6.08); White Blood Count 8.37 K/ul (4.8-10.8)
[2022-09-17 16:33] LABS: Alanine Aminotransferase 22 U/L (7-52); Albumin Globulin Ratio 2.3 (0.9-2); Albumin Level 4.8 gm/dl (3.4-5.0); Alkaline Phosphatase 76 U/L (34-104); Anion Gap 5 (3-11); Aspartate Aminotransferase 15 U/L (13-39); BUN Creatinine Ratio 21.2 (10-20); Bilirubin,Total 0.7 mg/dl (0.2-1.0); Blood Urea Nitrogen 22 mg/dl (6-23); Calcium 8.8 mg/dl (8.5-10.1); Carbon Dioxide 28 mmol/L (21-32); Chloride 106 mmol/L (98-107); Est GFR (African American) 119.2 ml/min; Est GFR (Non-African American) 102.9 ml/min; Globulin 2.1 gm/dl (2.5-4.0); Glucose 91 mg/dl (70-99(Fasting)); Potassium 3.7 mmol/L (3.5-5.1); Sodium 139 mmol/L (136-145); Total Protein 6.9 gm/dl (6.0-8.3)
[2022-09-17 16:38] LABS: Acetaminophen < 3 ug/ml (10-30); Salicylate < 3.0 mg/dl (3.0-30)
[2022-09-17 17:40] LABS: Appearance Urine Clear (Clear); Bacteria Urine Automated Negative (Negative); Bilirubin Urine Negative (Negative); Blood Urine Negative (Negative); Cast Urine Automated 0 /lpf (0-5); Color Urine Yellow; Epithelial Cell Urine Auto 0-5 /lpf (0-5); Glucose Urine UA Negative (Negative); Ketones Urine Negative (Negative); Leukocyte Esterase Urine Trace (Negative); Nitrite Urine Negative (Negative); Protein Urine Negative (Negative); RBC Urine Automated 0-4 /hpf (0-4); Specific Gravity Urine 1.011 (1.000-1.030); Urobilinogen Urine Negative (Negative)
[2022-09-17 17:57] LABS: Amphetamines+Metham, Urine Neg (Neg); Barbiturates, Urine Neg (Neg); Benzodiazepine, Urine Neg (Neg); Cocaine, Urine Neg (Neg); MDMA (Ecstacy), Urine Neg (Neg); Methadone, Urine Neg (Neg); Opiate, Urine Neg (Neg); Phencyclidine, Urine Neg (Neg)
[2022-09-17] MEDS ORDERED: VENLAFAXINE HCL 37.5 MG TAB PO SCH (21:00)
--- NOTE | 2022-09-18 02:05 | Emergency Department Note ---
ED Visit Note Patient was signed out to me at change of shift by Dr. Larson, patient is currently under 201 for suicidal thoughts with plan to overdose on medications. Patient is medically cleared and bed search is initiated, patient was being assessed for placement at 3 S. however admission to 3 S. is being delayed secondary to staffing issue. Patient will be reassessed for placement in the morning. Patient remained stable without any acute interventions required on my part during my shift. Patient was signed out to my colleague Dr. Tobar, in stable condition with bed search and final disposition pending. .
--- NOTE | 2022-09-18 06:00 | Emergency Department Note ---
ED Visit Note Patient is currently being evaluated for psychiatric disposition for suicidal ideation and a plan to take pills to overdose. Patient has a history of bipolar and depression. Reportedly was involved in an argument. The case was signed over at 230 this morning and there have been no issues overnight on the warehouse worker 2nd shift emergency department shift. Patient is currently undergoing a bed search and there is a possibility that the patient might be dispositioned to 3 S. in the morning. .
--- NOTE | 2022-09-18 07:09 | Emergency Department Note ---
ED Visit Note ED Physician Sign Out Note: 21 yr old male history bipolar/depression/ocd. Suicidal with plan to overdose though currently on 201 voluntary. Requesting hospitalization. Medically cleared 09/17/[address] Fong. Signed out to me by Dr Tobar. No issues throughout the morning patient was excepted to [facility] on a voluntary basis without any issue. Preet Granado MD
[2022-09-18] MEDS ORDERED: buPROPion HCl 100 MG TABLET PO SCH (09:00)
[2022-09-18] MEDS ORDERED: buPROPion XL 300 MG TABCR PO SCH (09:00)
[2022-09-18] MEDS ORDERED: hydrOXYzine HCl 25 MG TAB PO PRN ×2 (09:58)
[2022-09-18] MEDS ORDERED: MAGNESIUM HYDROXIDE SUSP 30 ML UDC PO PRN (09:58)
[2022-09-18] MEDS ORDERED: ACETAMINOPHEN 325 MG TAB PO PRN (09:58)
[2022-09-18] MEDS ORDERED: SODIUM CHLORIDE 0.65% NA SOLN 45 ML (OCEAN) PRN (09:58)
[2022-09-18] MEDS ORDERED: BISMUTH SUBSALICYLATE LIQD 236 ML PO PRN (09:58)
[2022-09-18] MEDS ORDERED: ALUMINUM/MAGNESIUM SUSP 30 ML UDC PO PRN (09:58)
--- NOTE | 2022-09-18 14:23 | History & Physical ---
Date of Service September 18, 2022 Impression / Recommendations Impression ANASTASIA is a 21 year old with a history of BPAD, OCD, PTSD, MIRIAN, depression, childhood adversities who was admitted for interrupted suicide attempt. Diagnostically consistent with unspecified depression-unclear if bipolar spectrum depression versus major depressive disorder and likely component of mood reactivity from prior and ongoing challenging living environment given discord between his parents and difficulty navigating process of individuation/wanting to increased independence but also dependent on his parents for housing/transport. He is deemed unstable and requires psychiatric hospitalization for diagnostic clarification, safety and stabilization, medication management and development of further coping skills. It's unclear to me if he self-tapered himself off his prior psychiatric medications or if this was done in discussion with his PCP as his most recent psychiatric note from [facility] is from July 2022 with recommendation to continue with Latuda, Cymbalta, Buspar, and Lamictal. Will attempt to clarify this with his psychiatric provider. Discussed medication treatment options in detail pending further discussion with outpatient provider. Discussed risks, benefits and alternatives. Patient would like to reduce his venlafaxine XR and continue with Wellbutrin and consented to these changes/continuation. Reviewed side effects including but not limited to: GI, SY, elevated BP/HR, sexual side effects, and counseled on black box warning of potential for emergence of or increased SI and need to let staff know should this occur or should they feel unsafe. Also discussed importance of seeking emergency care following discharge if this side effect occurs in the future. He is not interested in adding any other medications at this time, rather is focused on goal of tapering his medications and focusing on therapy and finding a new place to live. MNPR due to high level of irritability, inability to tolerate a roommate (1) Depression with suicidal ideation: (2) Fibromyalgia: (3) OCD (obsessive compulsive disorder): Obsessive-compulsive disorder type: unspecified Qualified Code(s): F42.9 - Obsessive-compulsive disorder, unspecified (4) Anxiety: (5) Post traumatic stress disorder (PTSD): Plan 09/18/22: The patient was admitted to the [facility] ([facility] mental [facility] unit) on q15 min checks (behavioral with suicide precautions) for safety. The patient will participate in group, recreational, and milieu therapies and will be offered additional individual and family sessions as clinically appropriate. -Decrease Effexor XR to 150mg qhs -Continue Wellbutrin XL 150mg daily -Will reach out to his [facility] provider to clarify medication discrepancy Inventory Assets Strengths: outpatient providers, resilient, likes to work/wants to find new job Needs: safety and stabilization, medication adjustment, additional coping skills, increased outpatient services Suicide Risk Level Suicide Risk Level: High-Moderate (q15 min suicide checks) (High-Moderate due to severe depression with SI with interrupted attempt prior to admission but feels safe in the hospital, able to safety contract and agrees to let nursing/staff know should they develop plan, intent or feel unable to remain safe.) Suicide Risk Level Comments: Risk Factors Assessment Male: Yes : Yes Do You Have Access To A Gun?: No (will confirm with famly before d/c) Health Problems: Yes (fibromyalgia) Mental Health Diagnoses: Yes Substance Use Disorders: No Previous Attempt: No Family History of Suicide: Yes Previous Psychiatric Hospitalization: Yes Protective Factors Assessment Employed: Yes Good Rapport with Provider: Yes Psychiatric History Identifying Data ALICE TYSON is a 21-year-old M who currently lives in [facility] with his parents, has a history of OCD, PTSD and MDD vs BPAD, and was admitted on 09/18/22 09:58 on a 201 voluntary commitment for interrupted suicide attempt via overdose on his venlafaxine. Chief Complaint "I attempted suicide because of everything happening at home". History of Present Illness DJ presents for psychiatric admission for worsening depression and interrupted suicide attempt. He was last hospitalized at [facility] in May 2022 for depression after leaving a job. Today states that he quit his new job last week due to concerns his boss was taking money from the company. Over the last he's been at home more and felt increasing overwhelmed by his parents "constantly arguing" as well as mean comments his mother makes toward him. Expresses frustration that his dad doesn't do more to step in and stop this from happening. Due to the stress of his living situation and feeling as though his parents have "a lot of control over me" he became increasingly suicidal and was going to take an overdose of his venlafaxine but his father stopped him and his mother called 911 who brought him to the ED. Today he expresses ongoing frustration over his living situation stating "I feel like my depression is all situational". Continues to work with his outpatient therapist and psychiatric PA. Feels therapy has been the most helpful thing for his OCD, anxiety and depression. Tells me he and his providers no longer feel like BPAD is an accurate diagnosis and he's been tapered off many of his previous mood stabilizer medications now on Effexor XR 300mg at bedtime, as he finds this makes him tired, and Wellbutrin 150mg daily. He would like to reduce his medications further due to feeling like they "make me tired and slow down my thoughts". He endorses ongoing OCD symptoms especially lining things up but feels therapy helps a lot with this. Continues to prefer healthy foods but no longer exercising to excess. Denies any recent self-harm. Denies any recent episodes of syl/hypomania. Past Psychiatric History Current Psychiatric Diagnosis: MDD Outpatient Services: therapy with Robin at [facility] psych clinic, psychiatry services with [place] Vincent at [facility], mobile psych with [facility] weekly Previous Psych Admissions: [facility] May 2022, January 2022 [place], and 3 prior admissions during childhood (age [age] at [facility], age [age] at [facility] and then [facility] a few months later). Do You Have Access To A Gun?: No (will confirm with famly before d/c) History of Previous Suicide Attempt: No Past Medication Trials: per review of [facility] records: Celexa, Clomipramine, Cymbalta, Trazodone, Prozac, Buspar, Vistaril, ativan, propranolol Latuda, Lamictal, [place], Abilify, Zyprexa Clonidine Past Head Trauma/Neuro History History of Concussion/Seizure: No Allergies Allergy/AdvReac Type Severity Reaction Status Date / Time No Known Allergies AdvReac Unknown Verified 05/16/22 21:24 Home Medications Medication Instructions Recorded Confirmed Type bupropion HCl 300 mg 24 hr tablet, 300 mg PO DAILY 09/17/22 09/17/22 History extended release venlafaxine 150 mg 300 mg PO HS 09/17/22 09/17/22 History capsule,extended release 24 hr Family History Family History of: Depression, Anxiety and Suicide Attempts Alcohol History Hx of Alcohol Use Over the Past 12 Months: No AUDIT Total Score: 0 Smoking Use Have You Smoked or Used Tobacco Products in the Last 30 Days: No Smoking Status: Never smoker Substance History Hx of Prescription Med Misuse Over the Past 12 Months: No Hx of Over the Counter Med Misuse Over the Past 12 Months: No Hx of Inhalent Misuse Over the Past 12 Months: No Hx of Organic Substance Use Over the Past 12 Months: No Hx of Illegal Substances/Street Drug Use Over Past 12 Months: No Problems as a Result of Past Substance Use: None Identified Personal History Living Arrangements: Home Living Arrangements Comments: lives with parents Highest Grade Completed: High School Graduate Employment Status: Unemployed Marital Status: Single Beliefs That Will Affect Care: None Current Legal Problems: No Hx Legal Problems: No Hx Traumatic Life Events: Yes (hx emotional trauma) Patient History Medical History Fibromyalgia [place] use Obesity Surgical History No pertinent past surgical history Family History Mother Diabetes Denies family history of Ovarian cancer Prostate cancer Myocardial infarction Breast cancer Colorectal cancer Hypertension Social History Smoking Status: Never smoker Second Hand Exposure: No; Hx Alcohol Use: No Hx Substance Use: No Preferred Language: Slovak Communication Ability: Effective Hearing Ability: Normal Pressure Welder Required: No Beliefs That Will Affect Care: None marital status: Single Current Living Situation: Family Current Living Situation Comment: mother and father current occupational status: unemployed How many Children do You have: 0 Feels Safe at Home: Yes Childhood Exposure to Second-Hand Smoke: No caffeine: No Dental Care, Regularly: Yes Physical Activity Frequency: Daily Physical Activity Frequency Comment: working out Seatbelt Use: always Sunscreen Use: Yes Assistive Devices: None Review of Systems Review of Systems: All systems reviewed & are unremarkable except as noted in HPI & below Physical Exam Psychiatric: Orientation: alert and oriented x 3 Apperance: appropriately dressed and appropriately groomed Eye Contact: + fair eye contact Motor Behavior: no abnormal motor movements Speech: normal rate/rhythm/volume of speech Affect: + depressed affect, + anxious affect and + irritable affect Mood: + depressed mood, + anxious mood and + irritable mood Thought Process: + circumstantial thought process Thought Content: reality based without delusions Suicidal Thoughts: denies suicidal plan and denies suicidal intent; + reports suicidal thoughts (intermittent passive thoughts ) Homicidal Thoughts: denies homicidal thoughts Hallucinations: no auditory hallucinations and no visual hallucinations Cognition: recent memory grossly intact, remote memory grossly intact, attention grossly intact and language grossly intact Estimated Intelligence: consistent with education level Insight: + limited insight Judgement: + limited judgement Vital Signs (Past 24 Hours): Last Vital Signs Temp 36.7 C 09/18/22 11:30 Pulse 82 09/18/22 11:30 Resp 16 09/18/22 11:30 BP 127/80 09/18/22 11:30 Pulse Ox 98 09/18/22 11:30 O2 Del Method 09/18/22 11:30 Exam Statement: A physical exam was performed in the ED by Dr. Larson for the purposes of medical clearance. I accept that physical as correct and adequate for the purposes of the inpatient physical exam. Results & Data ([facility]) Laboratory Results Laboratory Results - last 24 hr 09/17/22 09/17/22 09/17/22 15:50 16:00 16:00 WBC 8.37 RBC 5.41 Hgb 16.3 Hct 47.1 MCV 87.1 MCH 30.1 MCHC 34.6 RDW Std Deviation 41.5 RDW Coeff of Juan Alberto 13.2 Plt Count 262 MPV 9.6 Immature Gran % (Auto) 0.1 Neut % (Auto) 63.7 Lymph % (Auto) 29.2 Kemper % (Auto) 6.7 Eos % (Auto) 0.1 Baso % (Auto) 0.2 Neut # (Auto) 5.33 Lymph # (Auto) 2.44 Kemper # (Auto) 0.56 Eos # (Auto) 0.01 Baso # (Auto) 0.02 Immature Gran # (Auto) 0.01 Sodium 139 Potassium 3.7 Chloride 106 Carbon Dioxide 28 Anion Gap 5 BUN 22 Creatinine 1.04 Est Cr Clr Drug Dosing Not Reportable Est GFR ( Amer) 119.2 Est GFR (Non-Af Amer) 102.9 BUN/Creatinine Ratio 21.2 H Glucose 91 Calcium 8.8 Total Bilirubin 0.7 AST 15 ALT 22 Alkaline Phosphatase 76 Total Protein 6.9 Albumin 4.8 Globulin 2.1 L Albumin/Globulin Ratio 2.3 H TSH Urine Color Urine Appearance Urine pH Ur Specific [place]don Urine Protein Urine Glucose (UA) Urine Ketones Urine Blood Urine Nitrite Urine Bilirubin Urine Urobilinogen Ur Leukocyte Esterase Urine WBC (Auto) Urine RBC (Auto) U Hyaline Cast (Auto) U Epithel Cells (Auto) Urine Bacteria (Auto) Salicylates Urine Opiates Screen Ur Methadone, Qual Acetaminophen Urine Barbiturates Ur Phencyclidine (PCP) U Amphetamin/Meth Scrn MDMA (Ecstasy) Screen U Benzodiazepines Scrn Ur Cocaine Metabolite U Marijuana (THC) Screen Ethyl Alcohol mg/dL SARS-CoV-2, RNA, NAAT NEGATIVE 09/17/22 09/17/22 09/17/22 16:00 16:00 16:00 WBC RBC Hgb Hct MCV MCH MCHC RDW Std Deviation RDW Coeff of Juan Alberto Plt Count MPV Immature Gran % (Auto) Neut % (Auto) Lymph % (Auto) Kemper % (Auto) Eos % (Auto) Baso % (Auto) Neut # (Auto) Lymph # (Auto) Kemper # (Auto) Eos # (Auto) Baso # (Auto) Immature Gran # (Auto) Sodium Potassium Chloride Carbon Dioxide Anion Gap BUN Creatinine Est Cr Clr Drug Dosing Est GFR ( Amer) Est GFR (Non-Af Amer) BUN/Creatinine Ratio Glucose Calcium Total Bilirubin AST ALT Alkaline Phosphatase Total Protein Albumin Globulin Albumin/Globulin Ratio TSH 0.731 Urine Color Urine Appearance Urine pH Ur Specific [place] Urine Protein Urine Glucose (UA) Urine Ketones Urine Blood Urine Nitrite Urine Bilirubin Urine Urobilinogen Ur Leukocyte Esterase Urine WBC (Auto) Urine RBC (Auto) U Hyaline Cast (Auto) U Epithel Cells (Auto) Urine Bacteria (Auto) Salicylates < 3.0 L Urine Opiates Screen Ur Methadone, Qual Acetaminophen < 3 L Urine Barbiturates Ur Phencyclidine (PCP) U Amphetamin/Meth Scrn MDMA (Ecstasy) Screen U Benzodiazepines Scrn Ur Cocaine Metabolite U Marijuana (THC) Screen Ethyl Alcohol mg/dL < 10.0 SARS-CoV-2, RNA, NAAT 09/17/22 09/17/22 17:15 17:15 WBC RBC Hgb Hct MCV MCH MCHC RDW Std Deviation RDW Coeff of Juan Alberto Plt Count MPV Immature Gran % (Auto) Neut % (Auto) Lymph % (Auto) Kemper % (Auto) Eos % (Auto) Baso % (Auto) Neut # (Auto) Lymph # (Auto) Kemper # (Auto) Eos # (Auto) Baso # (Auto) Immature Gran # (Auto) Sodium Potassium Chloride Carbon Dioxide Anion Gap BUN Creatinine Est Cr Clr Drug Dosing Est GFR ( Amer) Est GFR (Non-Af Amer) BUN/Creatinine Ratio Glucose Calcium Total Bilirubin AST ALT Alkaline Phosphatase Total Protein Albumin Globulin Albumin/Globulin Ratio TSH Urine Color Yellow Urine Appearance Clear Urine pH 8.0 H Ur Specific [place] 1.011 Urine Protein Negative Urine Glucose (UA) Negative Urine Ketones Negative Urine Blood Negative Urine Nitrite Negative Urine Bilirubin Negative Urine Urobilinogen Negative Ur Leukocyte Esterase Trace H Urine WBC (Auto) 1-5 Urine RBC (Auto) 0-4 U Hyaline Cast (Auto) 0 U Epithel Cells (Auto) 0-5 Urine Bacteria (Auto) Negative Salicylates Urine Opiates Screen Neg Ur Methadone, Qual Neg Acetaminophen Urine Barbiturates Neg Ur Phencyclidine (PCP) Neg U Amphetamin/Meth Scrn Neg MDMA (Ecstasy) Screen Neg U Benzodiazepines Scrn Neg Ur Cocaine Metabolite Neg U Marijuana (THC) Screen Neg Ethyl Alcohol mg/dL SARS-CoV-2, RNA, NAAT Current Inpatient Medications Current Inpatient Medications: Current Inpatient Medications Acetaminophen (Acetaminophen 325 Mg Tab) 650 mg PO Q4H PRN PRN Reason: Headache or Minor Fever Stop: 10/18/22 09:57 Al Hydrox/Mg Hydrox/Simethicone (Aluminum/Magnesium Susp 30 Ml Udc) 30 ml PO Q4H PRN PRN Reason: GI Upset Stop: 10/18/22 09:57 Bismuth Subsalicylate (Bismuth Subsalicylate Liqd 236 Ml) 15 ml PO PRN PRN PRN Reason: Loose Stool Stop: 10/18/22 09:57 Bupropion HCl (Bupropion Hcl 100 Mg Tablet) 300 mg PO DAILY LEAH Stop: 10/18/22 08:59 Last Admin: 09/18/22 09:59 Dose: 300 mg Hydroxyzine HCl (Hydroxyzine Hcl 25 Mg Tab) 50 mg PO HSZ PRN PRN Reason: Insomnia Stop: 10/18/22 09:57 Hydroxyzine HCl (Hydroxyzine Hcl 25 Mg Tab) 25 mg PO Q4H PRN PRN Reason: Anxiety Stop: 10/18/22 09:57 Magnesium Hydroxide (Magnesium Hydroxide Susp 30 Ml Udc) 30 ml PO DAILY PRN PRN Reason: Constipation Stop: 10/18/22 09:57 Sodium Chloride (Sodium Chloride 0.65% Na Soln 45 Ml ([place])) 1 - 2 sprays NA PRN PRN PRN Reason: Nasal Dryness/Congestion Stop: 10/18/22 09:57 Venlafaxine HCl (Venlafaxine Hcl Xr 150 Mg Capxr) 300 mg PO HS LEAH Stop: 10/18/22 20:59
[2022-09-18] MEDS ORDERED: VENLAFAXINE HCL XR 150 MG CAPXR PO SCH ×2 (21:00→22:00)
[2022-09-19] MEDS: buPROPion XL 150 MG TABCR PO SCH (08:54)
[2022-09-19] MEDS ORDERED: buPROPion HCl 75 MG TABLET PO SCH (09:00)
--- NOTE | 2022-09-19 13:37 | Psychiatric Progress Note ---
Date of Service September 19, 2022 Impression / Recommendations Impression ANASTASIA is a 21 year old with a history of BPAD, OCD, PTSD, MIRIAN, depression, childhood adversities who was admitted for interrupted suicide attempt. Diagnostically consistent with unspecified depression-unclear if bipolar spectrum depression versus major depressive disorder and likely component of mood reactivity from prior and ongoing challenging living environment given discord between his parents and difficulty navigating process of individuation/wanting to increased independence but also dependent on his parents for housing/transport. He is deemed unstable and requires psychiatric hospitalization for diagnostic clarification, safety and stabilization, medication management and development of further coping skills. MNPR due to high level of irritability, inability to tolerate a roommate 09/19/22: Ongoing perseveration about challenges with family dynamic and ruminative depression. Remains uninterested in adding any additional medications, wants to continue with taper of venlafaxine ER. Left message with his provider at [facility]. (1) Depression with suicidal ideation: (2) Fibromyalgia: (3) OCD (obsessive compulsive disorder): (4) Anxiety: (5) Post traumatic stress disorder (PTSD): Plan 09/19/22: Decreased Effexor XR to 75mg qhs 09/18/22: The patient was admitted to the [facility] ([facility] unit) on q15 min checks (behavioral with suicide precautions) for safety. The patient will participate in group, recreational, and milieu therapies and will be offered additional individual and family sessions as clinically appropriate. -Decrease Effexor XR to 150mg qhs -Continue Wellbutrin XL 150mg daily -Will reach out to his [facility] provider to clarify medication discrepancy Inventory Assets Strengths: outpatient providers, resilient, likes to work/wants to find new job Needs: safety and stabilization, medication adjustment, additional coping skills, increased outpatient services Suicide Risk Level Suicide Risk Level: High-Moderate (q15 min suicide checks) (High-Moderate due to severe depression with SI with interrupted attempt prior to admission but feels safe in the hospital, able to safety contract and agrees to let nursing/staff know should they develop plan, intent or feel unable to remain safe.) Suicide Risk Level Comments: Risk Factors Assessment Male: Yes : Yes Do You Have Access To A Gun?: No (will confirm with famly before d/c) Health Problems: Yes (fibromyalgia) Mental Health Diagnoses: Yes Substance Use Disorders: No Previous Attempt: No Family History of Suicide: Yes Previous Psychiatric Hospitalization: Yes Protective Factors Assessment Employed: Yes Good Rapport with Provider: Yes Interval History Identifying Information ALICE TYSON is a 21-year-old M who currently lives in [facility] with his parents, has a history of OCD, PTSD and MDD vs BPAD, and was admitted on 09/18/22 09:58 on a 201 voluntary commitment for interrupted suicide attempt via overdose on his venlafaxine. Chief Complaint "I'm not good". Review of Systems Sleep Information Total Hours of Sleep: 5.5 Meal Information Percent Meal Consumed - Breakfast: 100 Percent Meal Consumed - Lunch: 75 Percent Meal Consumed - Dinner: 100 Subjective Subjective Patient was seen & assessed and interval progress reviewed with treatment team nursing and social work. Remains overwhelmed by the dynamics with his parents. Feels that he is unable to stay with any relatives or friends and notes that sometimes they do things as a family that are nice and "really fun" but that his parents don't seem to be able to support him the way he needs to be helped. Discussed this dynamic, some ACT strategies and processed some cognitive distortions related to all or nothing thinking "is it all my parents or maybe it's all me". Remains depressed. Struggled to allow peers to speak in groups as remained very ruminative and seeking repeated reassurance for his concerns. Discussed possibility of some contribution from OCD but he continues to desire medication taper. Reviewed medications and he states changes were made when he was inpatient at the [facility] in August and that he was not seen at [facility] since that admission. Confirmed again that he has only been taking Wellbutrin XL 150mg qd in the outpatient setting. Denies any withdrawal side effects from reduction of venlafaxine. Physical Exam Psychiatric Orientation: alert and oriented x 3 Apperance: appropriately dressed and appropriately groomed Eye Contact: good eye contact (intense at times) Motor Behavior: no abnormal motor movements Speech: normal rate/rhythm/volume of speech Affect: + depressed affect, + anxious affect and + irritable affect Mood: + depressed mood, + anxious mood and + irritable mood Thought Process: goal directed thought process and + circumstantial thought process Thought Content: reality based without delusions Suicidal Thoughts: denies suicidal plan and denies suicidal intent; + reports suicidal thoughts (intermittent passive thoughts ) Homicidal Thoughts: denies homicidal thoughts Hallucinations: no auditory hallucinations and no visual hallucinations Cognition: recent memory grossly intact, remote memory grossly intact, attention grossly intact and language grossly intact Estimated Intelligence: consistent with education level Insight: + limited insight and + fair insight Judgement: + limited judgement and + fair judgement Vital Signs (Past 24 Hours) Last Vital Signs Temp 36.2 C L 09/19/22 06:36 Pulse 86 09/19/22 06:37 Resp 16 09/19/22 06:36 BP 112/69 09/19/22 06:37 Pulse Ox 98 09/18/22 11:30 O2 Del Method 09/18/22 11:30 Results & Data ([facility]) Current Inpatient Medications Current Inpatient Medications: Current Inpatient Medications Acetaminophen (Acetaminophen 325 Mg Tab) 650 mg PO Q4H PRN PRN Reason: Headache or Minor Fever Stop: 10/18/22 09:57 Al Hydrox/Mg Hydrox/Simethicone (Aluminum/Magnesium Susp 30 Ml Udc) 30 ml PO Q4H PRN PRN Reason: GI Upset Stop: 10/18/22 09:57 Bismuth Subsalicylate (Bismuth Subsalicylate Liqd 236 Ml) 15 ml PO PRN PRN PRN Reason: Loose Stool Stop: 10/18/22 09:57 Bupropion HCl (Bupropion Xl 150 Mg Tabcr) 150 mg PO QAM LEAH Stop: 10/19/22 08:59 Last Admin: 09/19/22 08:54 Dose: 150 mg Hydroxyzine HCl (Hydroxyzine Hcl 25 Mg Tab) 50 mg PO HSZ PRN PRN Reason: Insomnia Stop: 10/18/22 09:57 Hydroxyzine HCl (Hydroxyzine Hcl 25 Mg Tab) 25 mg PO Q4H PRN PRN Reason: Anxiety Stop: 10/18/22 09:57 Magnesium Hydroxide (Magnesium Hydroxide Susp 30 Ml Udc) 30 ml PO DAILY PRN PRN Reason: Constipation Stop: 10/18/22 09:57 Sodium Chloride (Sodium Chloride 0.65% Na Soln 45 Ml ([place])) 1 - 2 sprays NA PRN PRN PRN Reason: Nasal Dryness/Congestion Stop: 10/18/22 09:57 Venlafaxine HCl (Venlafaxine Hcl Xr 150 Mg Capxr) 150 mg PO HS LEAH Stop: 10/18/22 21:59 Last Admin: 09/18/22 21:43 Dose: 150 mg Mental Health & Subst Abuse Tx Psychiatrist Name of Psychiatrist: Isabel Walsh- Daina Frazier Psychiatrist's Date of Appointment with Psychiatrist: 11/01/21 Time of Appointment with Psychiatrist: 11:15 AM Psychiatric Appointment Comment: [address] [place] [address] Therapist Name of Therapist: [facility] - [facility] Therapist's Date of Therapist Appointment: 09/21/22 Time of Therapist Appointment: 6pm Post Discharge Appointments Primary Care Physician Name Of Family Doctor: NINA Primary Care Provider Appointment Comment: [address] [place], [place] [address] Partial or Psych Rehab Name of Partial or Psych Rehab: [facility] Time of Appointment at Partial or Psych Rehab: resume your normal schedule (1) OCD (obsessive compulsive disorder) Obsessive-compulsive disorder type: unspecified Qualified Code(s): F42.9 - Obsessive-compulsive disorder, unspecified
[2022-09-19] MEDS ORDERED: VENLAFAXINE HCL XR 75 MG CAPXR PO SCH (22:00)
[2022-09-20] MEDS: buPROPion XL 150 MG TABCR PO SCH (09:30)
--- NOTE | 2022-09-20 17:23 | Psychiatric Progress Note ---
Date of Service September 20, 2022 Impression / Recommendations Impression ANASTASIA is a 21 year old with a history of BPAD, OCD, PTSD, MIRIAN, depression, childhood adversities who was admitted for interrupted suicide attempt. Diagnostically consistent with unspecified depression-unclear if bipolar spectrum depression versus major depressive disorder and likely component of mood reactivity from prior and ongoing challenging living environment given discord between his parents and difficulty navigating process of individuation/wanting to increased independence but also dependent on his parents for housing/transport. He is deemed unstable and requires psychiatric hospitalization for diagnostic clarification, safety and stabilization, medication management and development of further coping skills. MNPR due to high level of irritability, inability to tolerate a roommate 09/20/22: Ongoing pruminative depression but a little more acceptance of his home situation and depression improving a bit and spoke on the phone with his dad. Spoke with his [facility] provider Daina Frazier on the phone. Continue taper of Effexor XR to 37.5mg qhs. Continue with Wellbutrin XL 150mg qd. May be worth re- trial of clomipramine in the future for OCD symptoms if he becomes willing/interested in this given this remains his biggest concern but he is also motivated for and most interested in ERP therapy approach to treat this. (1) Depression with suicidal ideation: (2) Fibromyalgia: (3) OCD (obsessive compulsive disorder): (4) Anxiety: (5) Post traumatic stress disorder (PTSD): Plan 09/20/22: Decrease Effexor XR to 37.5mg qhs then stop. Continue with Wellbutrin XL 150mg qd. 09/19/22: Decreased Effexor XR to 75mg qhs 09/18/22: The patient was admitted to the [facility] ([facility] mental health unit) on q15 min checks (behavioral with suicide precautions) for safety. The patient will participate in group, recreational, and milieu therapies and will be offered additional individual and family sessions as clinically appropriate. -Decrease Effexor XR to 150mg qhs -Continue Wellbutrin XL 150mg daily -Will reach out to his [facility] provider to clarify medication discrepancy Inventory Assets Strengths: outpatient providers, resilient, likes to work/wants to find new job Needs: safety and stabilization, medication adjustment, additional coping skills, increased outpatient services Suicide Risk Level Suicide Risk Level: Moderate (q15 min suicide checks) (severe depression with SI with interrupted attempt prior to admission but mood improving feels safe in the hospital, able to safety contract and agrees to let nursing/staff know should they develop plan, intent or feel unable to remain safe.) Suicide Risk Level Comments: Risk Factors Assessment Male: Yes : Yes Do You Have Access To A Gun?: No (will confirm with famly before d/c) Health Problems: Yes (fibromyalgia) Mental Health Diagnoses: Yes Substance Use Disorders: No Previous Attempt: No Family History of Suicide: Yes Previous Psychiatric Hospitalization: Yes Protective Factors Assessment Employed: Yes Good Rapport with Provider: Yes Interval History Identifying Information ALICE TYSON is a 21-year-old M who currently lives in [facility] with his parents, has a history of OCD, PTSD and MDD vs BPAD, and was admitted on 09/18/22 09:58 on a 201 voluntary commitment for interrupted suicide attempt via overdose on his venlafaxine. Chief Complaint "I overthink everything". Review of Systems Sleep Information Total Hours of Sleep: 6 Meal Information Percent Meal Consumed - Breakfast: 100 Percent Meal Consumed - Lunch: 100 Percent Meal Consumed - Dinner: 0 Subjective Subjective Patient was seen & assessed and interval progress reviewed with treatment team nursing and social work. More isolative yesterday evening. Today attending groups and spent time processing with unit counselor. Notes some improvements in his mood and talked with his dad on the phone. But also notes that OCD can be overwhelming and get in the way of things. He wonders if his OCD symptoms are what lead to some of his fatigue symptoms. Continues to desire goal of mini mizing medications, will continue with Effexor XR taper. Physical Exam Psychiatric Orientation: alert and oriented x 3 Apperance: appropriately dressed and appropriately groomed Eye Contact: good eye contact Motor Behavior: no abnormal motor movements Speech: normal rate/rhythm/volume of speech Affect: + depressed affect and + anxious affect Mood: + depressed mood and + anxious mood Thought Process: + circumstantial thought process Thought Content: + preoccupation and + obsessions Suicidal Thoughts: denies suicidal plan and denies suicidal intent; + reports suicidal thoughts (intermittent passive thoughts ) Homicidal Thoughts: denies homicidal thoughts Hallucinations: no auditory hallucinations and no visual hallucinations Cognition: recent memory grossly intact, remote memory grossly intact, attention grossly intact and language grossly intact Estimated Intelligence: consistent with education level Insight: + limited insight Judgement: + limited judgement Vital Signs (Past 24 Hours) Last Vital Signs Temp 36.5 C 09/20/22 06:42 Pulse 81 09/20/22 06:42 Resp 16 09/20/22 06:42 BP 112/69 09/20/22 06:42 Pulse Ox 98 09/18/22 11:30 O2 Del Method 09/18/22 11:30 Results & Data ([facility]) Current Inpatient Medications Current Inpatient Medications: Current Inpatient Medications Acetaminophen (Acetaminophen 325 Mg Tab) 650 mg PO Q4H PRN PRN Reason: Headache or Minor Fever Stop: 10/18/22 09:57 Al Hydrox/Mg Hydrox/Simethicone (Aluminum/Magnesium Susp 30 Ml Udc) 30 ml PO Q4H PRN PRN Reason: GI Upset Stop: 10/18/22 09:57 Bismuth Subsalicylate (Bismuth Subsalicylate Liqd 236 Ml) 15 ml PO PRN PRN PRN Reason: Loose Stool Stop: 10/18/22 09:57 Bupropion HCl (Bupropion Xl 150 Mg Tabcr) 150 mg PO QAM LEAH Stop: 10/19/22 08:59 Last Admin: 09/20/22 09:30 Dose: 150 mg Hydroxyzine HCl (Hydroxyzine Hcl 25 Mg Tab) 50 mg PO HSZ PRN PRN Reason: Insomnia Stop: 10/18/22 09:57 Hydroxyzine HCl (Hydroxyzine Hcl 25 Mg Tab) 25 mg PO Q4H PRN PRN Reason: Anxiety Stop: 10/18/22 09:57 Magnesium Hydroxide (Magnesium Hydroxide Susp 30 Ml Udc) 30 ml PO DAILY PRN PRN Reason: Constipation Stop: 10/18/22 09:57 Sodium Chloride (Sodium Chloride 0.65% Na Soln 45 Ml ([place])) 1 - 2 sprays NA PRN PRN PRN Reason: Nasal Dryness/Congestion Stop: 10/18/22 09:57 Venlafaxine HCl (Venlafaxine Hcl Xr 75 Mg Capxr) 75 mg PO HS LEAH Stop: 10/19/22 21:59 Last Admin: 09/19/22 21:33 Dose: 75 mg Mental Health & Subst Abuse Tx Psychiatrist Name of Psychiatrist: Isabel Walsh Daina Frazier Psychiatrist's Date of Appointment with Psychiatrist: 11/01/21 Time of Appointment with Psychiatrist: 11:15 AM Psychiatric Appointment Comment: [address] [place] [address] Therapist Name of Therapist: [facility] - [facility] Therapist's Date of Therapist Appointment: 09/28/22 Time of Therapist Appointment: 6pm Therapy Appointment Comment: please follow up after d/c to schedule session sooner if possible Credit Administrator Name of Credit Administrator: [employer] Phone Number for Credit Administrator: [phone] Time of Appointment with Credit Administrator: will follow up with you to assign CM after d/c Case Management Appointment Comment: [address], [address], [place], [place] Post Discharge Appointments Primary Care Physician Name Of Family Doctor: [facility] Time of Appointment with PCP: please follow up as needed Provider Appointment Comment: [address] [place], [place] [address] Partial or Psych Rehab Name of Partial or Psych Rehab: [facility] Time of Appointment at Partial or Psych Rehab: resume your normal schedule (1) OCD (obsessive compulsive disorder) Obsessive-compulsive disorder type: unspecified Qualified Code(s): F42.9 - Obsessive-compulsive disorder, unspecified
[2022-09-20] MEDS ORDERED: VENLAFAXINE HCL XR 37.5 MG CAPXR PO SCH (22:00)
--- NOTE | 2022-09-21 08:43 | Psychiatric Progress Note ---
Date of Service September 21, 2022 Impression / Recommendations Impression ANASTASIA is a 21 year old with a history of BPAD, OCD, PTSD, MIRIAN, depression, childhood adversities who was admitted for interrupted suicide attempt. Diagnostically consistent with unspecified depression-unclear if bipolar spectrum depression versus major depressive disorder and likely component of mood reactivity from prior and ongoing challenging living environment given discord between his parents and difficulty navigating process of individuation/wanting to increased independence but also dependent on his parents for housing/transport. He is deemed unstable and requires psychiatric hospitalization for diagnostic clarification, safety and stabilization, medication management and development of further coping skills. MNPR due to high level of irritability, inability to tolerate a roommate 09/21/22: Mood improving but remains depressed when he thinks about challenging home dynamic, particularly his parents fighting and his mother's anger. However, also wants to live at home and not interested in living with his grandfather for respite. Sleep was poor last night but not interested in any additional medications to help with. Remains motivated to engage with outpatient therapy. Challenging family meeting, his parents hung up on patient and SW. (1) Depression with suicidal ideation: (2) Fibromyalgia: (3) OCD (obsessive compulsive disorder): (4) Anxiety: (5) Post traumatic stress disorder (PTSD): Plan 09/21/22: Discontinue Effexor XR. Continue with Wellbutrin XL 150mg qd. 09/20/22: Decrease Effexor XR to 37.5mg qhs then stop. Continue with Wellbutrin XL 150mg qd. 09/19/22: Decreased Effexor XR to 75mg qhs 09/18/22: The patient was admitted to the [facility] ([facility] mental health unit) on q15 min checks (behavioral with suicide precautions) for safety. The patient will participate in group, recreational, and milieu therapies and will be offered additional individual and family sessions as clinically appropriate. -Decrease Effexor XR to 150mg qhs -Continue Wellbutrin XL 150mg daily -Will reach out to his [place] provider to clarify medication discrepancy Inventory Assets Strengths: outpatient providers, resilient, likes to work/wants to find new job Needs: safety and stabilization, medication adjustment, additional coping skills, increased outpatient services Suicide Risk Level Suicide Risk Level: Moderate (q15 min suicide checks) (depression with SI with interrupted attempt prior to admission but mood improving, denies SI now and feels safe in the hospital, able to safety contract and agrees to let nursing/staff know should they develop plan, intent or feel unable to remain safe.) Suicide Risk Level Comments: Risk Factors Assessment Male: Yes : Yes Do You Have Access To A Gun?: No (will confirm with famly before d/c) Health Problems: Yes (fibromyalgia) Mental Health Diagnoses: Yes Substance Use Disorders: No Previous Attempt: No Family History of Suicide: Yes Previous Psychiatric Hospitalization: Yes Protective Factors Assessment Employed: Yes Good Rapport with Provider: Yes Interval History Identifying Information ALICE TYSON is a 21-year-old M who currently lives in [facility] with his parents, has a history of OCD, PTSD and MDD vs BPAD, and was admitted on 09/18/22 09:58 on a 201 voluntary commitment for interrupted suicide attempt via overdose on his venlafaxine. Chief Complaint "It took me a long time to fall asleep because I was stressed, I couldn't turn my mind off". Review of Systems Sleep Information Total Hours of Sleep: 5.5 Meal Information Percent Meal Consumed - Breakfast: 100 Percent Meal Consumed - Lunch: 100 Percent Meal Consumed - Dinner: 100 Subjective Subjective Patient was seen & assessed and interval progress reviewed with treatment team nursing and social work. More hopeful at times but remains stressed about dynamics of family particularly his parents arguing and worries if this persists he could become suicidal again in the future. Discussed ways to cope with this stress at home and continue to explore potential alternative living options such as respite by staying with his grandfather but he's not interested in doing this. Remains hopeful his parents will change their ways as he wants to have a good relationship with them. He is not interested in any medications to help with sleep. No withdrawal side effects from taper to discontinuation of venlafaxine. Feels that his symptoms are situational. Mood improving in hospital setting. Physical Exam Psychiatric Orientation: alert and oriented x 3 Apperance: appropriately dressed and appropriately groomed Eye Contact: good eye contact Motor Behavior: no abnormal motor movements Speech: normal rate/rhythm/volume of speech Affect: + depressed affect and + anxious affect Mood: + depressed mood and + anxious mood Thought Process: + circumstantial thought process Thought Content: + preoccupation and + obsessions Suicidal Thoughts: denies suicidal thoughts, denies suicidal plan and denies suicidal intent Homicidal Thoughts: denies homicidal thoughts Hallucinations: no auditory hallucinations and no visual hallucinations Cognition: recent memory grossly intact, remote memory grossly intact, attention grossly intact and language grossly intact Estimated Intelligence: consistent with education level Insight: + limited insight Judgement: + limited judgement Vital Signs (Past 24 Hours) Last Vital Signs Temp 36.2 C L 09/21/22 06:32 Pulse 59 L 09/21/22 06:35 Resp 16 09/21/22 06:35 BP 116/72 09/21/22 06:35 Pulse Ox 98 09/18/22 11:30 O2 Del Method 09/18/22 11:30 Results & Data ([facility]) Current Inpatient Medications Current Inpatient Medications: Current Inpatient Medications Acetaminophen (Acetaminophen 325 Mg Tab) 650 mg PO Q4H PRN PRN Reason: Headache or Minor Fever Stop: 10/18/22 09:57 Al Hydrox/Mg Hydrox/Simethicone (Aluminum/Magnesium Susp 30 Ml Udc) 30 ml PO Q4H PRN PRN Reason: GI Upset Stop: 10/18/22 09:57 Bismuth Subsalicylate (Bismuth Subsalicylate Liqd 236 Ml) 15 ml PO PRN PRN PRN Reason: Loose Stool Stop: 10/18/22 09:57 Bupropion HCl (Bupropion Xl 150 Mg Tabcr) 150 mg PO QAM LEAH Stop: 10/19/22 08:59 Last Admin: 09/20/22 09:30 Dose: 150 mg Hydroxyzine HCl (Hydroxyzine Hcl 25 Mg Tab) 50 mg PO HSZ PRN PRN Reason: Insomnia Stop: 10/18/22 09:57 Hydroxyzine HCl (Hydroxyzine Hcl 25 Mg Tab) 25 mg PO Q4H PRN PRN Reason: Anxiety Stop: 10/18/22 09:57 Magnesium Hydroxide (Magnesium Hydroxide Susp 30 Ml Udc) 30 ml PO DAILY PRN PRN Reason: Constipation Stop: 10/18/22 09:57 Sodium Chloride (Sodium Chloride 0.65% Na Soln 45 Ml ([place])) 1 - 2 sprays NA PRN PRN PRN Reason: Nasal Dryness/Congestion Stop: 10/18/22 09:57 Venlafaxine HCl (Venlafaxine Hcl Xr 37.5 Mg Capxr) 37.5 mg PO HS LEAH Stop: 10/20/22 21:59 Last Admin: 09/20/22 21:25 Dose: 37.5 mg Mental Health & Subst Abuse Tx Psychiatrist Name of Psychiatrist: Isabel Frazier Psychiatrist's Date of Appointment with Psychiatrist: 11/01/21 Time of Appointment with Psychiatrist: 11:15 AM Psychiatric Appointment Comment: [address] [place] [address] Therapist Name of Therapist: [facility] - [facility] Therapist's Date of Therapist Appointment: 09/28/22 Time of Therapist Appointment: 6pm Therapy Appointment Comment: please follow up after d/c to schedule session sooner if possible Program Supervisor Name of Program Supervisor: [employer] Phone Number for Program Supervisor: [phone] Time of Appointment with Program Supervisor: will follow up with you to assign CM after d/c Case Management Appointment Comment: [address], [address], [place], [place] Post Discharge Appointments Primary Care Physician Name Of Family Doctor: [facility] Time of Appointment with PCP: please follow up as needed Provider Appointment Comment: [address] [place] [address] Partial or Psych Rehab Name of Partial or Psych Rehab: [facility] Time of Appointment at Partial or Psych Rehab: resume your normal schedule (1) OCD (obsessive compulsive disorder) Obsessive-compulsive disorder type: unspecified Qualified Code(s): F42.9 - Obsessive-compulsive disorder, unspecified
[2022-09-21] MEDS: buPROPion XL 150 MG TABCR PO SCH (09:13)
[2022-09-22] MEDS: buPROPion XL 150 MG TABCR PO SCH (09:00)
--- NOTE | 2022-09-22 16:51 | Psychiatric Progress Note ---
Date of Service September 22, 2022 Impression / Recommendations Impression ANASTASIA is a 21 year old with a history of BPAD, OCD, PTSD, MIRIAN, depression, childhood adversities who was admitted for interrupted suicide attempt. Diagnostically consistent with unspecified depression-unclear if bipolar spectrum depression versus major depressive disorder and likely component of mood reactivity from prior and ongoing challenging living environment given discord between his parents and difficulty navigating process of individuation/wanting to increased independence but also dependent on his parents for housing/transport. He is deemed unstable and requires psychiatric hospitalization for diagnostic clarification, safety and stabilization, medication management and development of further coping skills. MNPR due to OCD/need for order, cleanliness, inability to tolerate roommate 09/22/22: Mood improving, no longer with SI but remains anxious about returning home due to dynamics of his parents and potential for increased stress in the future. Slept better last night. Tolerating his medications well. Remains motivated to engage with outpatient therapy. Engaging in safety planning. (1) Major depression: (2) OCD (obsessive compulsive disorder): (3) Depression with suicidal ideation: (4) Fibromyalgia: (5) Anxiety: (6) Post traumatic stress disorder (PTSD): Plan 09/21/22: Discontinue Effexor XR. Continue with Wellbutrin XL 150mg qd. 09/20/22: Decrease Effexor XR to 37.5mg qhs then stop. Continue with Wellbutrin XL 150mg qd. 09/19/22: Decreased Effexor XR to 75mg qhs 09/18/22: The patient was admitted to the [facility] ([facility] mental health unit) on q15 min checks (behavioral with suicide precautions) for safety. The patient will participate in group, recreational, and milieu therapies and will be offered additional individual and family sessions as clinically appropriate. -Decrease Effexor XR to 150mg qhs -Continue Wellbutrin XL 150mg daily -Will reach out to his [place] provider to clarify medication discrepancy Inventory Assets Strengths: outpatient providers, resilient, likes to work/wants to find new job Needs: safety and stabilization, medication adjustment, additional coping skills, increased outpatient services Suicide Risk Level Suicide Risk Level: Low (q15 min observation checks) (no longer with SI and feels safe in the hospital, able to safety contract and agrees to let nursing/staff know should SI reoccur) Suicide Risk Level Comments: Risk Factors Assessment Male: Yes : Yes Do You Have Access To A Gun?: No (will confirm with famly before d/c) Health Problems: Yes (fibromyalgia) Mental Health Diagnoses: Yes Substance Use Disorders: No Previous Attempt: No Family History of Suicide: Yes Previous Psychiatric Hospitalization: Yes Protective Factors Assessment Employed: Yes Good Rapport with Provider: Yes Interval History Identifying Information ALICE TYSON is a 21-year-old M who currently lives in [facility] with his parents, has a history of OCD, PTSD and MDD vs BPAD, and was admitted on 09/18/22 09:58 on a 201 voluntary commitment for interrupted suicide attempt via overdose on his venlafaxine. Chief Complaint "My dad is trying to stick up for me". Review of Systems Sleep Information Total Hours of Sleep: 6 Meal Information Percent Meal Consumed - Breakfast: 100 Percent Meal Consumed - Lunch: 100 Percent Meal Consumed - Dinner: 100 Subjective Subjective Patient was seen & assessed and interval progress reviewed with treatment team nursing and social work. Engaged with groups. Denies any side effects from stopping venlafaxine, continues to find Wellbutrin helpful for his mood. Denies SI and feels his mood is improving but notes that if his mother's episodes of anger and her fighting with his dad continue at home then he will likely feel depressed again and this could cause him to develop SI again in the future. Reviewed this and processed ways to feel more in control given the challenges of his living environment and he does feel he can advocate for himself and work to find independent housing. Reviewed resources and what to do if he ever felt physically unsafe in his home due to his mother. He remains frustrated that his mother can't be forced to get her own psychiatric treatment as he feels she never follows through with therapy or trying to make positive changes. He met with his new karliept CM. Physical Exam Psychiatric Orientation: alert and oriented x 3 Apperance: appropriately dressed and appropriately groomed Eye Contact: good eye contact Motor Behavior: no abnormal motor movements Speech: normal rate/rhythm/volume of speech Affect: + anxious affect Mood: + anxious mood Thought Process: + circumstantial thought process Thought Content: + preoccupation and + obsessions Suicidal Thoughts: denies suicidal thoughts, denies suicidal plan and denies suicidal intent Homicidal Thoughts: denies homicidal thoughts Hallucinations: no auditory hallucinations and no visual hallucinations Cognition: recent memory grossly intact, remote memory grossly intact, attention grossly intact and language grossly intact Estimated Intelligence: consistent with education level Insight: + limited insight Judgement: + limited judgement Vital Signs (Past 24 Hours) Last Vital Signs Temp 36.4 C 09/22/22 06:23 Pulse 73 09/22/22 06:23 Resp 16 09/22/22 06:26 BP 115/73 09/22/22 06:26 Pulse Ox 98 09/18/22 11:30 O2 Del Method 09/18/22 11:30 Results & Data ([facility]) Current Inpatient Medications Current Inpatient Medications: Current Inpatient Medications Acetaminophen (Acetaminophen 325 Mg Tab) 650 mg PO Q4H PRN PRN Reason: Headache or Minor Fever Stop: 10/18/22 09:57 Al Hydrox/Mg Hydrox/Simethicone (Aluminum/Magnesium Susp 30 Ml Udc) 30 ml PO Q4H PRN PRN Reason: GI Upset Stop: 10/18/22 09:57 Bismuth Subsalicylate (Bismuth Subsalicylate Liqd 236 Ml) 15 ml PO PRN PRN PRN Reason: Loose Stool Stop: 10/18/22 09:57 Bupropion HCl (Bupropion Xl 150 Mg Tabcr) 150 mg PO QAM LEAH Stop: 10/19/22 08:59 Last Admin: 09/22/22 09:00 Dose: 150 mg Hydroxyzine HCl (Hydroxyzine Hcl 25 Mg Tab) 50 mg PO HSZ PRN PRN Reason: Insomnia Stop: 10/18/22 09:57 Hydroxyzine HCl (Hydroxyzine Hcl 25 Mg Tab) 25 mg PO Q4H PRN PRN Reason: Anxiety Stop: 10/18/22 09:57 Magnesium Hydroxide (Magnesium Hydroxide Susp 30 Ml Udc) 30 ml PO DAILY PRN PRN Reason: Constipation Stop: 10/18/22 09:57 Sodium Chloride (Sodium Chloride 0.65% Na Soln 45 Ml ([place])) 1 - 2 sprays NA PRN PRN PRN Reason: Nasal Dryness/Congestion Stop: 10/18/22 09:57 Mental Health & Subst Abuse Tx Psychiatrist Name of Psychiatrist: Isabel Frazier Psychiatrist's Date of Appointment with Psychiatrist: 11/01/21 Time of Appointment with Psychiatrist: 11:15 AM Psychiatric Appointment Comment: [address] [place] [address] Therapist Name of Therapist: [facility] Therapist's Date of Therapist Appointment: 09/28/22 Time of Therapist Appointment: 6pm Therapy Appointment Comment: please follow up after d/c to schedule session sooner if possible Forestry Engineer Name of Forestry Engineer: [facility] [place] Phone Number for Forestry Engineer: [phone] Time of Appointment with Forestry Engineer: Please call to schedule time to meet after discharge. Case Management Appointment Comment: [address], [address], [place], [place] Post Discharge Appointments Primary Care Physician Name Of Family Doctor: [facility] Primary Care Time of Appointment with PCP: please follow up as needed Provider Appointment Comment: [address] [place] [address] Partial or Psych Rehab Name of Partial or Psych Rehab: [facility] Time of Appointment at Partial or Psych Rehab: resume your normal schedule Contact Information Discharge Discharge Address: [address] [place] [id number] (1) OCD (obsessive compulsive disorder) Obsessive-compulsive disorder type: unspecified Qualified Code(s): F42.9 - Obsessive-compulsive disorder, unspecified
[2022-09-23] MEDS: buPROPion XL 150 MG TABCR PO SCH (09:16)
--- NOTE | 2022-09-23 13:45 | Psychiatric Progress Note ---
Date of Service September 23, 2022 Impression / Recommendations Impression DJ is a 21 year old with a history of BPAD, OCD, PTSD, MIRIAN, depression, childhood adversities who was admitted for interrupted suicide attempt. Diagnostically consistent with unspecified depression-unclear if bipolar spectrum depression versus major depressive disorder and likely component of mood reactivity from prior and ongoing challenging living environment given discord between his parents and difficulty navigating process of individuation/wanting to increased independence but also dependent on his parents for housing/transport. MNPR due to OCD/need for order, cleanliness, inability to tolerate roommate 09/22/22: regression as feeling rejected by family (1) Major depression: (2) OCD (obsessive compulsive disorder): (3) Depression with suicidal ideation: (4) Fibromyalgia: (5) Anxiety: (6) Post traumatic stress disorder (PTSD): Plan 09/23/22: continue current medication and tx plan. 09/21/22: Discontinue Effexor XR. Continue with Wellbutrin XL 150mg qd. 09/20/22: Decrease Effexor XR to 37.5mg qhs then stop. Continue with Wellbutrin XL 150mg qd. 09/19/22: Decreased Effexor XR to 75mg qhs 09/18/22: The patient was admitted to the [facility] ([facility] inpatient mental [facility] unit) on q15 min checks (behavioral with suicide precautions) for safety. The patient will participate in group, recreational, and milieu therapies and will b e offered additional individual and family sessions as clinically appropriate. -Decrease Effexor XR to 150mg qhs -Continue Wellbutrin XL 150mg daily -Will reach out to his [place] provider to clarify medication discrepancy Inventory Assets Strengths: outpatient providers, resilient, likes to work/wants to find new job Needs: safety and stabilization, medication adjustment, additional coping skills, increased outpatient services Suicide Risk Level Suicide Risk Level: Low (q15 min observation checks) Suicide Risk Level Comments: Risk Factors Assessment Male: Yes : Yes Do You Have Access To A Gun?: No (will confirm with famly before d/c) Health Problems: Yes (fibromyalgia) Mental Health Diagnoses: Yes Substance Use Disorders: No Previous Attempt: No Family History of Suicide: Yes Previous Psychiatric Hospitalization: Yes Protective Factors Assessment Employed: Yes Good Rapport with Provider: Yes Interval History Identifying Information ALICE TYSON is a 21-year-old M who currently lives in [facility] with his parents, has a history of OCD, PTSD and MDD vs BPAD, and was admitted on 09/18/22 09:58 on a 201 voluntary commitment for interrupted suicide attempt via overdose on his venlafaxine. Chief Complaint "I can't believe they are like 5 min away and wouldn't come get me". Review of Systems Sleep Information Total Hours of Sleep: 7 Meal Information Percent Meal Consumed - Breakfast: 100 Percent Meal Consumed - Lunch: 100 Percent Meal Consumed - Dinner: 100 Subjective Subjective Patient was seen & assessed and interval progress reviewed with nursing and social work. Patient was upset following family meeting, rated mood as 4 last pm. Not engaging in programming this am as upset his father will not get him until tomorrow and they are otherwise engaged in holiday activities as a family. He c/o feeling jittery/shaky from upset but was resistant to any implication that could be Effexor discontinuation syndrome. Physical Exam Psychiatric Orientation: alert Apperance: appropriately dressed and appropriately groomed Eye Contact: + fair eye contact Motor Behavior: no abnormal motor movements Speech: normal rate/rhythm/volume of speech Affect: + depressed affect and + anxious affect Mood: + depressed mood and + anxious mood Thought Process: goal directed thought process and + circumstantial thought process Thought Content: reality based without delusions Suicidal Thoughts: denies suicidal thoughts Homicidal Thoughts: denies homicidal thoughts Hallucinations: no auditory hallucinations and no visual hallucinations Cognition: attention grossly intact and language grossly intact Vital Signs (Past 24 Hours) Last Vital Signs Temp 36.6 C 09/23/22 06:25 Pulse 69 09/23/22 06:26 Resp 16 09/23/22 06:25 BP 109/70 09/23/22 06:26 Pulse Ox 98 09/18/22 11:30 O2 Del Method 09/18/22 11:30 Results & Data ([facility]) Current Inpatient Medications Current Inpatient Medications: Current Inpatient Medications Acetaminophen (Acetaminophen 325 Mg Tab) 650 mg PO Q4H PRN PRN Reason: Headache or Minor Fever Stop: 10/18/22 09:57 Al Hydrox/Mg Hydrox/Simethicone (Aluminum/Magnesium Susp 30 Ml Udc) 30 ml PO Q4H PRN PRN Reason: GI Upset Stop: 10/18/22 09:57 Bismuth Subsalicylate (Bismuth Subsalicylate Liqd 236 Ml) 15 ml PO PRN PRN PRN Reason: Loose Stool Stop: 10/18/22 09:57 Bupropion HCl (Bupropion Xl 150 Mg Tabcr) 150 mg PO QAM LEAH Stop: 10/19/22 08:59 Last Admin: 09/23/22 09:16 Dose: 150 mg Hydroxyzine HCl (Hydroxyzine Hcl 25 Mg Tab) 50 mg PO HSZ PRN PRN Reason: Insomnia Stop: 10/18/22 09:57 Hydroxyzine HCl (Hydroxyzine Hcl 25 Mg Tab) 25 mg PO Q4H PRN PRN Reason: Anxiety Stop: 10/18/22 09:57 Magnesium Hydroxide (Magnesium Hydroxide Susp 30 Ml Udc) 30 ml PO DAILY PRN PRN Reason: Constipation Stop: 10/18/22 09:57 Sodium Chloride (Sodium Chloride 0.65% Na Soln 45 Ml ([place])) 1 - 2 sprays NA PRN PRN PRN Reason: Nasal Dryness/Congestion Stop: 10/18/22 09:57 Mental Health & Subst Abuse Tx Psychiatrist Name of Psychiatrist: Isabel Frazier Psychiatrist's Date of Appointment with Psychiatrist: 11/01/21 Time of Appointment with Psychiatrist: 11:15 AM Psychiatric Appointment Comment: [address] [place] [address] Therapist Name of Therapist: [facility] Therapist's Date of Therapist Appointment: 09/28/22 Time of Therapist Appointment: 6pm Therapy Appointment Comment: please follow up after d/c to schedule session sooner if possible Polymerization Oven Tender Name of Polymerization Oven Tender: [facility] Phone Number for Polymerization Oven Tender: [phone] Time of Appointment with Polymerization Oven Tender: Please call to schedule time to meet after discharge. Case Management Appointment Comment: [address], [address], [place], [place] Post Discharge Appointments Primary Care Physician Name Of Family Doctor: [facility] Primary [facility] Time of Appointment with PCP: please follow up as needed Provider Appointment Comment: [address] [place] [address] Partial or Psych Rehab Name of Partial or Psych Rehab: [facility] Time of Appointment at Partial or Psych Rehab: resume your normal schedule Contact Information Discharge Discharge Address: [address] [place] [address] (1) OCD (obsessive compulsive disorder) Obsessive-compulsive disorder type: unspecified Qualified Code(s): F42.9 - Obsessive-compulsive disorder, unspecified
[2022-09-24] MEDS: buPROPion XL 150 MG TABCR PO SCH (09:26)
--- NOTE | 2022-09-24 13:35 | Discharge Summary ---
Date of Service September 24, 2022 History of Present Illness As per Dr. Peterson on admission: ANASTASIA presents for psychiatric admission for worsening depression and interrupted suicide attempt. He was last hospitalized at [facility] in May 2022 for depression after leaving a job. Today states that he quit his new job last week due to concerns his boss was taking money from the company. Over the last he's been at home more and felt increasing overwhelmed by his parents "constantly arguing" as well as mean comments his mother makes toward him. Expresses frustration that his dad doesn't do more to step in and stop this from happening. Due to the stress of his living situation and feeling as though his parents have "a lot of control over me" he became increasingly suicidal and was going to take an overdose of his venlafaxine but his father stopped him and his mother called 911 who brought him to the ED. Today he expresses ongoing frustration over his living situation stating "I feel like my depression is all situational". Continues to work with his outpatient therapist and psychiatric PA. Feels therapy has been the most helpful thing for his OCD, anxiety and depression. Tells me he and his providers no longer feel like BPAD is an accurate diagnosis and he's been tapered off many of his previous mood stabilizer medications now on Effexor XR 300mg at bedtime, as he finds this makes him tired, and Wellbutrin 150mg daily. He would like to reduce his medications further due to feeling like they "make me tired and slow down my thoughts". He endorses ongoing OCD symptoms especially lining things up but feels therapy helps a lot with this. Continues to prefer healthy foods but no longer exercising to excess. Denies any recent self-harm. Denies any recent episodes of syl/hypomania. Physical Exam Psychiatric See admission H&P and DOD assessment. Vital Signs (Past 24 Hours) Last Vital Signs Temp 36.8 C 09/24/22 06:35 Pulse 83 09/24/22 06:36 Resp 16 09/24/22 06:35 BP 103/61 09/24/22 06:36 Pulse Ox 98 09/18/22 11:30 O2 Del Method 09/18/22 11:30 Principal Diagnosis major depression Psychiatric Data See daily stay summary. In short, safety was maintained and the patient was cooperative with care. Medication changes included taper of Effexor XR to avoid discontinuation syndrome and they tolerated this well. A family session was held and safety plan was completed prior to discharge. Day of Discharge Assessment Today the patient voices readiness for discharge. They note improvement in mood and deny thoughts to harm self or others. Thoughts remain organized and they are improved from admission. There is no evidence of psychosis. They agree to take mediations as prescribed and keep follow-up appointments. They are stable for discharge to outpatient level of care. Transition of Care Transition Of Care Record: was reviewed with the patient Advance Directives Advance Directives Information Provided: Yes Advance Directives: No Mental Health Advance Directive: No Advance Directives on File: No Living Will: No Power of Food Consultant: No Advance Directives Reason:: Declines as Mental Health Visit. Suicide Risk Level Suicide Risk Level Comments: Suicide risk at discharge is deemed low as the patient is no longer requiring 24-hr monitoring, has a safety plan, and is free of suicidal ideation at discharge. Risk Factors Assessment Male: Yes : Yes Do You Have Access To A Gun?: No (will confirm with famly before d/c) Health Problems: Yes (fibromyalgia) Mental Health Diagnoses: Yes Substance Use Disorders: No Previous Attempt: No Family History of Suicide: Yes Previous Psychiatric Hospitalization: Yes Protective Factors Assessment Employed: Yes [employer] with Provider: Yes Tobacco Cessation at Discharge Tobacco Cessation Medication Prescribed at Discharge: Not Applicable/Non-Smoker Total Time Total Time Spent: Greater Than 30 Minutes Total Time Includes: Examination of the patient, Discharge Planning and Medication Reconciliation Discharge Data Lab Results 09/17/22 09/17/22 09/17/22 15:50 16:00 16:00 WBC 8.37 RBC 5.41 Hgb 16.3 Hct 47.1 MCV 87.1 MCH 30.1 MCHC 34.6 RDW Std Deviation 41.5 RDW Coeff of Juan Alberto 13.2 Plt Count 262 MPV 9.6 Immature Gran % (Auto) 0.1 Neut % (Auto) 63.7 Lymph % (Auto) 29.2 Villalba % (Auto) 6.7 Eos % (Auto) 0.1 Baso % (Auto) 0.2 Neut # (Auto) 5.33 Lymph # (Auto) 2.44 Villalba # (Auto) 0.56 Eos # (Auto) 0.01 Baso # (Auto) 0.02 Immature Gran # (Auto) 0.01 Sodium 139 Potassium 3.7 Chloride 106 Carbon Dioxide 28 Anion Gap 5 BUN 22 Creatinine 1.04 Est Cr Clr Drug Dosing Not Reportable Est GFR ( Amer) 119.2 Est GFR (Non-Af Amer) 102.9 BUN/Creatinine Ratio 21.2 H Glucose 91 Calcium 8.8 Total Bilirubin 0.7 AST 15 ALT 22 Alkaline Phosphatase 76 Total Protein 6.9 Albumin 4.8 Globulin 2.1 L Albumin/Globulin Ratio 2.3 H TSH Urine Color Urine Appearance Urine pH Ur Specific Hamilton Urine Protein Urine Glucose (UA) Urine Ketones Urine Blood Urine Nitrite Urine Bilirubin Urine Urobilinogen Ur Leukocyte Esterase Urine WBC (Auto) Urine RBC (Auto) U Hyaline Cast (Auto) U Epithel Cells (Auto) Urine Bacteria (Auto) Salicylates Urine Opiates Screen Ur Methadone, Qual Acetaminophen Urine Barbiturates Ur Phencyclidine (PCP) U Amphetamin/Meth Scrn MDMA (Ecstasy) Screen U Benzodiazepines Scrn Ur Cocaine Metabolite U Marijuana (THC) Screen Ethyl Alcohol mg/dL SARS-CoV-2, RNA, NAAT NEGATIVE 09/17/22 09/17/22 09/17/22 16:00 16:00 16:00 WBC RBC Hgb Hct MCV MCH MCHC RDW Std Deviation RDW Coeff of Juan Alberto Plt Count MPV Immature Gran % (Auto) Neut % (Auto) Lymph % (Auto) Villalba % (Auto) Eos % (Auto) Baso % (Auto) Neut # (Auto) Lymph # (Auto) Villalba # (Auto) Eos # (Auto) Baso # (Auto) Immature Gran # (Auto) Sodium Potassium Chloride Carbon Dioxide Anion Gap BUN Creatinine Est Cr Clr Drug Dosing Est GFR ( Amer) Est GFR (Non-Af Amer) BUN/Creatinine Ratio Glucose Calcium Total Bilirubin AST ALT Alkaline Phosphatase Total Protein Albumin Globulin Albumin/Globulin Ratio TSH 0.731 Urine Color Urine Appearance Urine pH Ur Specific Hamilton Urine Protein Urine Glucose (UA) Urine Ketones Urine Blood Urine Nitrite Urine Bilirubin Urine Urobilinogen Ur Leukocyte Esterase Urine WBC (Auto) Urine RBC (Auto) U Hyaline Cast (Auto) U Epithel Cells (Auto) Urine Bacteria (Auto) Salicylates < 3.0 L Urine Opiates Screen Ur Methadone, Qual Acetaminophen < 3 L Urine Barbiturates Ur Phencyclidine (PCP) U Amphetamin/Meth Scrn MDMA (Ecstasy) Screen U Benzodiazepines Scrn Ur Cocaine Metabolite U Marijuana (THC) Screen Ethyl Alcohol mg/dL < 10.0 SARS-CoV-2, RNA, NAAT 09/17/22 09/17/22 17:15 17:15 WBC RBC Hgb Hct MCV MCH MCHC RDW Std Deviation RDW Coeff of Juan Alberto Plt Count MPV Immature Gran % (Auto) Neut % (Auto) Lymph % (Auto) Villalba % (Auto) Eos % (Auto) Baso % (Auto) Neut # (Auto) Lymph # (Auto) Villalba # (Auto) Eos # (Auto) Baso # (Auto) Immature Gran # (Auto) Sodium Potassium Chloride Carbon Dioxide Anion Gap BUN Creatinine Est Cr Clr Drug Dosing Est GFR ( Amer) Est GFR (Non-Af Amer) BUN/Creatinine Ratio Glucose Calcium Total Bilirubin AST ALT Alkaline Phosphatase Total Protein Albumin Globulin Albumin/Globulin Ratio TSH Urine Color Yellow Urine Appearance Clear Urine pH 8.0 H Ur Specific Hamilton 1.011 Urine Protein Negative Urine Glucose (UA) Negative Urine Ketones Negative Urine Blood Negative Urine Nitrite Negative Urine Bilirubin Negative Urine Urobilinogen Negative Ur Leukocyte Esterase Trace H Urine WBC (Auto) 1-5 Urine RBC (Auto) 0-4 U Hyaline Cast (Auto) 0 U Epithel Cells (Auto) 0-5 Urine Bacteria (Auto) Negative Salicylates Urine Opiates Screen Neg Ur Methadone, Qual Neg Acetaminophen Urine Barbiturates Neg Ur Phencyclidine (PCP) Neg U Amphetamin/Meth Scrn Neg MDMA (Ecstasy) Screen Neg U Benzodiazepines Scrn Neg Ur Cocaine Metabolite Neg U Marijuana (THC) Screen Neg Ethyl Alcohol mg/dL SARS-CoV-2, RNA, NAAT Hospital Course (1) Major depression: (2) OCD (obsessive compulsive disorder): (3) Depression with suicidal ideation: (4) Fibromyalgia: (5) Anxiety: (6) Post traumatic stress disorder (PTSD): Plan 09/23/22: continue current medication and tx plan. 09/21/22: Discontinue Effexor XR. Continue with Wellbutrin XL 150mg qd. 09/20/22: Decrease Effexor XR to 37.5mg qhs then stop. Continue with Wellbutrin XL 150mg qd. 09/19/22: Decreased Effexor XR to 75mg qhs 09/18/22: The patient was admitted to the [facility] (locked inpatient mental health unit) on q15 min checks (behavioral with suicide precautions) for safety. The patient will participate in group, recreational, and milieu therapies and will be offered additional individual and family sessions as clinically appropriate. -Decrease Effexor XR to 150mg qhs -Continue Wellbutrin XL 150mg daily -Will reach out to his [place] provider to clarify medication discrepancy Mental Health & Subst Abuse Tx Psychiatrist Name of Psychiatrist: [facility] Daina Frazier Psychiatrist's Date of Appointment with Psychiatrist: 11/01/21 Time of Appointment with Psychiatrist: 11:15 AM Psychiatric Appointment Comment: [address] [place] [address] Therapist Name of Therapist: [facility] - Robin Ridley Therapist's Date of Therapist Appointment: 09/28/22 Time of Therapist Appointment: 6pm Therapy Appointment Comment: please follow up after d/c to schedule session sooner if possible Residential Carpenter Name of Residential Carpenter: [facility] Phone Number for Residential Carpenter: [phone] Time of Appointment with Residential Carpenter: Please call to schedule time to meet after discharge. Case Management Appointment Comment: [address], [address], [place], [place] Post Discharge Appointments Primary Care Physician Name Of Family Doctor: [facility] Time of Appointment with PCP: please follow up as needed Provider Appointment Comment: [address] [place] [address] Partial or Psych Rehab Name of Partial or Psych Rehab: [facility] Time of Appointment at Partial or Psych Rehab: resume your normal schedule Smoking Cessation Counseling Tobacco Cessation Medication Prescribed at Discharge: Not Applicable/Non-Smoker Contact Information Discharge Discharge Address[address] [address] [place], [place] [id number] Discharge Plan Discharge Items Patient Disposition: Home - Self-Care Reason For Visit: UNSPECIFIED MOOD DISORDER Discharge Diagnosis: Major Depressive Disorder with anxious distress Activity: Resume your previous activity Non-emergency contact: Primary Care Provider, Psychiatrist, Therapist and Perishable Freight Inspector Call non-emergency contact if: you have any medication questions and your symptoms worsen Follow-up/Referrals: Nahomy Fairchild MD [Primary Care Provider] - Diet: Regular Addtl Attending Provider Instructions: SPECIAL CARE INSTRUCTIONS: 1. Follow through with your scheduled aftercare appointments. If unable to keep an appointment, please call to reschedule. 2. Take your medication only as prescribed. Medication should not be changed or stopped without the approval of your doctor. In the event of worsening symptoms or concerns about side effects, contact your doctor immediately. 3. Utilize new healthy coping skills, anger management skills, and stress management skills learned during your hospitalization. Journal feelings and process them with a support person. Identify stressors or situations that may result in relapse, deterioration or inappropriate behaviors and develop a plan to deal with those issues. 4. If your coping skills are ineffective and you are in crisis, contact your outpatient providers for direction. If unable to reach your providers, please call the [facility] CRISIS LINE AT , go to the [facility] walk-in center at [address], [place], or go to the closest Emergency Room. 5. Avoid alcohol and un-prescribed drugs. 6. You have been provided with the Mental Health Advance Directives Pamphlet for your review. 7. Your condition is stable for discharge to outpatient level of care, but recovery is an ongoing process. Ifthoughts to harm yourself or others return, follow the safety plan developed during your stay. Planning for a safe return home includes securing weapons. Our treatment team recommends weaponsbe removed from the home until your outpatient provider reassesses your progress. In rare cases where the items themselvescannot be removed, guns and ammunitionshould be secured separatelyand keys stored by a reliable personoutside of the home. If you were admitted on an involuntary commitment, the police or other legal authorities may be involved in this process. AFTERCARE APPOINTMENTS: * Please call your insurance company prior to your scheduled appointment to confirm your aftercare providers are covered. Take your insurance information to your appointments. WHO TO CALL AND WHEN: Medical Emergencies: For questions or emergencies related to your hospital stay, please contact the Inpatient Behavioral Health Unit at [phone]. A director of rooms is on-call 30/04 for the Behavioral Health Unit for emergencies At any time you feel your situation is an emergency, you may also call 911 immediately. Pending Studies at Discharge: No Stand-Alone Forms: My [facility] Medications and DC Order Prescriptions: New bupropion HCl 150 mg Tablet Extended Release 24 Hr 150 mg PO QAM 30 Days Qty: 30 0RF Discontinued venlafaxine 150 mg capsule,extended release 24hr 300 mg PO HS bupropion HCl 300 mg tablet extended release 24 hr 300 mg PO DAILY Discharge Orders: Discharge Order (Routine); Ordered 09/24/22 Ordered By: Vickie Del Valle Admission Data Admit Date/Time: 09/18/22 09:58 Attending Provider: Vickie Del Valle Admit Provider: Vickie Del Valle Primary Care Provider: Nahomy Fairchild Other Providers: Ana Maria Peterson Coding Level of Care Code 45967 D/C day mgmt > 30 min Diagnoses Major depression F32.9 OCD (obsessive compulsive disorder) F42.9 Obsessive-compulsive disorder type: unspecified Depression with suicidal ideation F32.A; R45.851 Fibromyalgia M79.7 Anxiety F41.9 Post traumatic stress disorder (PTSD) F43.10
== END 2022-09-24 15:04 | disposition home or self-care (01) | DRG 881 ==
LOC: ED 15:40 → 3S 09-18 09:58 → SUATTDRO 09-18 09:58 → 3S 09-18 10:12